=== PATIENT | male | born 1975 | race Caucasian/White ===

== ENCOUNTER 2024-03-02 19:35 | Emergency (ER) | payer BC, SELFPAY ==
[2024-03-02 19:36] VITALS: BP 158/120
[2024-03-02 19:55] LABS: % Basophils 0.5 % (0-2); % Eosinophils 1.4 % (0-6); % Immature Granulocytes 0.4 % (0-0.5); % Lymphocytes 41.6 % (20.5-51.1); % Neutrophils 48.1 % (42.2-75.2); Absolute Basophils 0.1 10^3/uL (0-0.2); Absolute Eosinophils 0.2 10^3/uL (0-0.7); Absolute Lymphocytes 4.6 10^3/uL (1.2-3.4); Absolute Monocytes 0.9 10^3/uL (0.1-0.6); Absolute Neutrophils 5.3 10^3/uL (1.4-6.5); Hematocrit 43.2 % (39.0-52.0); Hemoglobin 15.6 g/dL (13.0-18.0); Mean Corp Hgb Conc. 36.1 g/dL (33.0-37.0); Mean Corpuscular Hgb 29.7 pg (27.0-31.0); Mean Corpuscular Volume 82.3 fL (80.0-94.0); Mean Platelet Volume 9.3 fL (7.4-10.4); Nucleated Red Blood Cells % 0 % (-); Platelet Count 386 10^3/uL (130-400); Red Blood Cell Count 5.25 10^6/uL (4.70-6.10); Red Cell Dist. Width 12.8 % (11.5-14.5); White Blood Cell Count 11.1 10^3/uL (4.8-10.8)
[2024-03-02 20:06] VITALS: BMI 27.5
[2024-03-02 20:08] LABS: ALT (SGPT) 28 U/L (0-50); AST (SGOT) 37 U/L (17-59); Albumin 5.3 g/dl (3.5-5.0); Alkaline Phosphatase 83 U/L (38-126); Blood Urea Nitrogen 9 mg/dl (9-20); Calcium 9.8 mg/dl (8.4-10.2); Carbon Dioxide 19 mmol/L (22-30); Chloride 109 mmol/L (98-107); Estimated Creatinine Clearance 118 ml/min; Glucose 100 mg/dl (70-99); Potassium 3.8 mmol/L (3.5-5.1); Sodium 142 mmol/L (135-145); Total Bilirubin 0.6 mg/dl (0.2-1.3); Total Protein 8.8 g/dl (6.3-8.2); eGFR > 60.00
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
[2024-03-02 20:16] VITALS: BP 149/103
[2024-03-02 21:00] VITALS: BP 153/103
[2024-03-02 22:00] VITALS: BP 157/107
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
[2024-03-02 22:40] VITALS: BP 157/103
== END 2024-03-02 22:54 | disposition home or self-care (01) ==
LOC: EMR 19:35
PROVIDERS: Emergency Medicine; EMERGENCY PHYSICIAN Emergency Medicine; FAMILY PHYSICIAN Internal Medicine
DX: F45.8 Other somatoform disorders (principal); F17.200 Nicotine dependence, unspecified, uncomplicated; R03.0 Elevated blood-pressure reading, without diagnosis of hypertension
CPT/HCPCS: 99284; 80053; 85025; 93005

== ENCOUNTER 2024-03-03 10:41 | Emergency (ER) | payer BC, SELFPAY ==
[2024-03-03] VITALS (7 sets, daily range): BP systolic 162–206; BP diastolic 82–189; BMI 27.0
--- NOTE | 2024-03-03 11:35 | ED.GENMED ---
History of Present Illness
<SUSAN Ruiz - Last Filed: 03/07/24 00:13>
General
Chief Complaint: Musculo-Skeletal Complaint
Source: patient
Exam Limitations: none
Time Seen by Provider: 03/03/24 10:54
Nursing documentation reviewed up to this point in time: agreed with
Travel History
Have you had any contact with someone who has COVID-19?: No
Do you have any symptoms of coronavirus? Fever > 100 degrees, chills, cough, shortness of breath, sore throat, loss of taste or smell, muscle aches, or headache?: No
History of Present Illness
History of Present Illness:
Patient is a 48-year-old male who presents back to the ER with same complaints as yesterday. Patient was seen and evaluated here in the ER last evening. Patient reports last evening around 7 PM he was cutting grass that had an argument with his
and then shortly after he had tingling of both arms and his fingers and hands went to a spasm he felt very dry mouth. He presented here to the ER was monitored diagnosed with hyperventilation anxiety and discharged home. He reports he slept
at a friend's house and this morning was talking to his mom about a very stressful topic and again developed the same symptoms. Today he is arms tingling his hands went to spasm and he fell like he was wearing a neck tie and describes this as his
throat closing up sensation. He currently feels better. He has a history of alcohol abuse has been sober for the past 3 months he has been on Zoloft for years and he smokes about a pack of cigarettes per week. He is adopted but reports no cardiac
history that he is aware of.
He himself has no history of cardiac disease.
Past History
<SUSAN Ruiz - Last Filed: 03/07/24 00:13>
Past History
ED Past Medical History: GERD
ED Past Surgical History: Cholecystectomy
Patient has exhibited threatening behavior?: No
PSI?: No
Social History
Tobacco: Smoker
Alcohol: Daily (Beer 2-3)
Personal:
Living: with family
Employment: Employed
Family History
Family History: Adopted
Review of Systems
<SUSAN Ruiz - Last Filed: 03/07/24 00:13>
Review of Systems
Allergies reviewed?: Yes
All Other Systems: ROS reviewed and negative except as documented in HPI and ROS
Constitutional: Reports no symptoms; Denies fever, fatigue or chills
EENT: Reports no symptoms
Respiratory: Reports trouble breathing ( ' I felt like I was wearing a neck tie' )
Cardiac: Reports no symptoms; Denies chest pain
ABD/GI: Reports no symptoms; Denies nausea or vomiting
: Reports no symptoms
Musculoskeletal: Reports no symptoms
Skin: Reports no symptoms
Psychiatric: Reports anxiety
Phy Exam
<SUSAN Ruiz - Last Filed: 03/07/24 00:13>
General Physical Exam
General Presentation: no apparent distress
General age: appears stated age
General Skin: warm and dry
General Habitus: normal
General Mental: alert
General Hydration: appears well hydrated
Cardiovascular Exam
Cardiovascular Exam: regular rate/rhythm, no murmur and normal peripheral pulses
Pulmonary Exam
Pulmonary Exam: lungs clear and no respiratory distress
Neurological Exam
Neurological Exam: alert and oriented x3
Musculoskeletal Exam
Musculoskeletal Exam: full ROM
Skin Exam
Skin Exam: normal color and warm/dry
Psychiatric Exam
Psychiatric Exam: anxious
Course
<SUSAN Ruiz - Last Filed: 03/07/24 00:13>
Orders/Labs/Results
Orders:
Orders
03/03/24 11:38
Chest [CR Chest - 2 Views ] Urgent
Comment:
Reason For Exam: cp
03/03/24 11:47
Troponin I Urgent
03/03/24 12:34
CT Chest/abd Angio W/wo Iv Con Urgent
Comment:
Reason For Exam: chest pain
03/03/24 12:37
IV Insert/Care/Rem.- Treatment PRN
03/03/24 12:52
Complete Blood Count/With Diff Urgent
Comprehensive Metabolic Panel Urgent
03/03/24 15:36
Losartan [Cozaar] 50 mg PO NOW STA
Abnormal Lab Results
03/03/24
12:52
WBC 14.2 H 10^3/uL
(4.8-10.8)
Abs Immat Gran (auto) 0.1 H 10^3/uL
(0-0.05)
Absolute Neuts (auto) 10.3 H 10^3/uL
(1.4-6.5)
Absolute Monos (auto) 1.5 H 10^3/uL
(0.1-0.6)
Lymphocytes % 15.7 L %
(20.5-51.1)
Monocytes % 10.3 H %
(1.7-9.3)
Carbon Dioxide 21 L mmol/L
(22-30)
Total Protein 8.6 H g/dl
(6.3-8.2)
Albumin 5.1 H g/dl
(3.5-5.0)
03/03/24 12:52
03/03/24 12:52
Vital Signs
Initial and Last Documented VS:
Initial Vital Signs
Temp Pulse Resp BP Pulse Ox
98.2 F 106 20 164/82 98
03/03/24 10:49 03/03/24 10:49 03/03/24 10:49 03/03/24 10:49 03/03/24 10:49
Last Documented Vital Signs
Temp Pulse Resp BP Pulse Ox
98.2 F 86 13 160/108 97
03/03/24 10:49 03/03/24 15:30 03/03/24 15:30 03/03/24 15:49 03/03/24 15:30
<Nelson Bland, DO - Last Filed: 03/03/24 16:05>
Orders/Labs/Results
Orders:
Orders
03/03/24 11:38
Chest [CR Chest - 2 Views ] Urgent
Comment:
Reason For Exam: cp
03/03/24 11:47
Troponin I Urgent
03/03/24 12:34
CT Chest/abd Angio W/wo Iv Con Urgent
Comment:
Reason For Exam: chest pain
03/03/24 12:37
IV Insert/Care/Rem.- Treatment PRN
03/03/24 12:52
Complete Blood Count/With Diff Urgent
Comprehensive Metabolic Panel Urgent
03/03/24 15:36
Losartan [Cozaar] 50 mg PO NOW STA
Abnormal Lab Results
03/03/24
12:52
WBC 14.2 H 10^3/uL
(4.8-10.8)
Abs Immat Gran (auto) 0.1 H 10^3/uL
(0-0.05)
Absolute Neuts (auto) 10.3 H 10^3/uL
(1.4-6.5)
Absolute Monos (auto) 1.5 H 10^3/uL
(0.1-0.6)
Lymphocytes % 15.7 L %
(20.5-51.1)
Monocytes % 10.3 H %
(1.7-9.3)
Carbon Dioxide 21 L mmol/L
(22-30)
Total Protein 8.6 H g/dl
(6.3-8.2)
Albumin 5.1 H g/dl
(3.5-5.0)
03/03/24 12:52
03/03/24 12:52
Vital Signs
Initial and Last Documented VS:
Initial Vital Signs
Temp Pulse Resp BP Pulse Ox
98.2 F 106 20 164/82 98
03/03/24 10:49 03/03/24 10:49 03/03/24 10:49 03/03/24 10:49 03/03/24 10:49
Last Documented Vital Signs
Temp Pulse Resp BP Pulse Ox
98.2 F 86 13 160/108 97
03/03/24 10:49 03/03/24 15:30 03/03/24 15:30 03/03/24 15:49 03/03/24 15:30
<SUSAN Ruiz - Last Filed: 03/07/24 00:13>
MDM/Problems Addressed
Differential Diagnosis Includes:
not limited to: anxiety, htn less likely ACS
MDM/Problems Addressed:
As documented patient was seen here yesterday after having with his diagnosed with hyperventilation syndrome. Patient back today with similar episode. He was speaking with his mom about a 'very heated subject,' and shortly after had
bilateral arm tingling and spasms of hands. Patient also describes feeling that he had a neck tile and felt tightness in this area. Patient presented awake alert no acute distress on my exam patient appears calmer but does admit that he is
anxious over what has been occurring since yesterday after having an argument with his . Patient did not have a cardiac troponin yesterday though he had no chest pain with complaints of neck tightness today troponin ordered and negative.
Patient had a normal EKG yesterday was mildly tacky yesterday. Chest x-ray today however shows increased prominence of the region of the ascending aorta CAT scan. d/c w/ ED physician will d/c with pt and order ct .
1531: CT incidentally shows 4.2 cm aortic aneurysm. Blood pressure is high he does not have a history of hypertension blood pressure now 160/100 heart rate 80s .
Case reviewed with cardiovascular surgery on-call Dr. Abraham Valencia who does recommend following up with PCP and having a repeat CTA chest in 6 months. Will start him on blood pressure medicine he does agree. Case reviewed with ED physician will
start losartan will give first dose here. Patient no acute distress discussed close outpatient follow-up.
<SUSAN Ruiz - Last Filed: 03/07/24 00:13>
*Critical Care Note
Total Time (30-74mins, 75-104mins- exclusive of procedures): Not Applicable
ED Attending Note
<SUSAN Ruiz - Last Filed: 03/07/24 00:13>
-
Portions of this chart may have been created with voice recognition software.� Occasional wrong word or��sound alike� substitutions may have occurred due to the inherent limitations of voice recognition software.
<Nelson Bland DO - Last Filed: 03/03/24 16:05>
ED Attending Note
Patient seen and examined by attending physician: Yes
ED Attending Note:
I have reviewed and agree with history and plan medical Savi. Patient is no acute distress, and ambulates without difficulty. He will follow-up with CT surgery for incidentally found ascending aortic aneurysm.
Discharge Plan
Departure
Patient Disposition: Home (Routine Discharge)
Date of Disposition: 03/03/24
Time of Disposition: 15:39
Patient with high blood pressure during this ER visit?: Yes
Condition: Fair
Covid-19: Not Applicable
Discharge Problem:
Anxiety, elevated blood pressue, Aneurysm of ascending aorta
Instructions: Anxiety, Adult (DC), BLOOD PRESSURE
Prescriptions:
New
losartan 50 mg tablet
50 mg PO DAILY Qty: 30 0RF
No Action
omeprazole magnesium [Prilosec OTC] 20 MG tablet,delayed release (DR/EC)
20 mg PO DAILY
ibuprofen 200 mg Tablet
200 mg PO DAILY
sertraline [Zoloft] 50 mg Tablet
50 mg PO DAILY
Thc Edible
1 gummy PO HSPRN PRN (Reason: sleep)
Referrals:
Axel Arvizu MD [Family Provider] -
Abraham Valencia MD [Active] -
Stand Alone Forms: Return to Work
Activity Restrictions/Additional Instructions:
You were seen here today for symptoms consistent with anxiety however incidentally there is an aneurysm seen in your ascending aorta( 4.2 cm). Your blood pressure was also high which will need to be treated. You were given 1 dose here in the ER of
losartan (a blood pressure medication). Please take this as directed daily. this medication was sent to your pharmacy. Closely follow-up with your family doctor/CT surgery for reevaluation of aneurysm finding you will need repeat imaging (CTA of
the chest) in the next 6-month. Avoid lifting
Return if any worsening of symptoms.
Interventions
Interventions:
*Risk Screen - Suicide Last Done: 03/03/24 10:49
*Neglect/Abuse Screening Last Done: 03/03/24 10:52
ED- Fall Risk Assessment Last Done: 03/03/24 16:06
*Nursing Disposition Last Done: 03/03/24 16:06
ED-Musculoskeletal Assessment Last Done: 03/03/24 11:52
Discharge Date and Time
Discharge Date/Time: 03/03/24 16:06
Print Language: UKRAIN[place]
[2024-03-03 12:21] LABS: Troponin I < 0.012 ng/ml
[2024-03-03 13:01] LABS: % Basophils 0.4 % (0-2); % Eosinophils 0.4 % (0-6); % Immature Granulocytes 0.4 % (0-0.5); % Lymphocytes 15.7 % (20.5-51.1); % Monocytes 10.3 % (1.7-9.3); % Neutrophils 72.8 % (42.2-75.2); Absolute Basophils 0.1 10^3/uL (0-0.2); Absolute Eosinophils 0.1 10^3/uL (0-0.7); Absolute Immature Granulocytes 0.1 10^3/uL (0-0.05); Absolute Lymphocytes 2.2 10^3/uL (1.2-3.4); Absolute Monocytes 1.5 10^3/uL (0.1-0.6); Absolute Neutrophils 10.3 10^3/uL (1.4-6.5); Hematocrit 44.9 % (39.0-52.0); Hemoglobin 15.7 g/dL (13.0-18.0); Mean Corpuscular Hgb 29.9 pg (27.0-31.0); Mean Corpuscular Volume 85.5 fL (80.0-94.0); Mean Platelet Volume 9.3 fL (7.4-10.4); Nucleated Red Blood Cells % 0 % (-); Platelet Count 320 10^3/uL (130-400); Red Blood Cell Count 5.25 10^6/uL (4.70-6.10); Red Cell Dist. Width 12.6 % (11.5-14.5); White Blood Cell Count 14.2 10^3/uL (4.8-10.8)
[2024-03-03 13:20] LABS: ALT (SGPT) 26 U/L (0-50); AST (SGOT) 39 U/L (17-59); Albumin 5.1 g/dl (3.5-5.0); Alkaline Phosphatase 82 U/L (38-126); Blood Urea Nitrogen 15 mg/dl (9-20); Calcium 10.1 mg/dl (8.4-10.2); Carbon Dioxide 21 mmol/L (22-30); Chloride 107 mmol/L (98-107); Estimated Creatinine Clearance > 125 ml/min; Glucose 90 mg/dl (70-99); Sodium 139 mmol/L (135-145); Total Bilirubin 1.3 mg/dl (0.2-1.3); Total Protein 8.6 g/dl (6.3-8.2); eGFR > 60.00
[2024-03-03] MEDS: COZAAR 50 MG PO (15:49)
== END 2024-03-03 16:06 | disposition home or self-care (01) ==
LOC: EMR 10:41
PROVIDERS: Nurse Practitioner; EMERGENCY PHYSICIAN Emergency Medicine; FAMILY PHYSICIAN Internal Medicine
DX: F41.9 Anxiety disorder, unspecified (principal); I71.21 Aneurysm of the ascending aorta, without rupture; R03.0 Elevated blood-pressure reading, without diagnosis of hypertension
CPT/HCPCS: 99285; 71046; 71275; 74175; 80053; 84484; 85025; Q9967

== ENCOUNTER 2024-07-12 20:48 | Emergency (ER) | payer BC, SELFPAY ==
[2024-07-12 20:51] VITALS: BP 123/82
[2024-07-12 21:38] LABS: % Basophils 0.6 % (0-2); % Immature Granulocytes 0.2 % (0-0.5); % Lymphocytes 27.8 % (20.5-51.1); % Monocytes 8.5 % (1.7-9.3); % Neutrophils 60.9 % (42.2-75.2); Absolute Basophils 0.1 10^3/uL (0-0.2); Absolute Eosinophils 0.2 10^3/uL (0-0.7); Absolute Lymphocytes 2.8 10^3/uL (1.2-3.4); Absolute Monocytes 0.9 10^3/uL (0.1-0.6); Absolute Neutrophils 6.1 10^3/uL (1.4-6.5); Hematocrit 43.3 % (39.0-52.0); Hemoglobin 15.5 g/dL (13.0-18.0); Mean Corp Hgb Conc. 35.8 g/dL (33.0-37.0); Mean Corpuscular Hgb 30.4 pg (27.0-31.0); Mean Corpuscular Volume 84.9 fL (80.0-94.0); Mean Platelet Volume 9.7 fL (7.4-10.4); Nucleated Red Blood Cells % 0 % (-); Platelet Count 287 10^3/uL (130-400); Red Cell Dist. Width 13.2 % (11.5-14.5)
[2024-07-12 21:40] VITALS: BMI 24.4
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
[2024-07-12 21:50] LABS: Amphetamines Negative (Negative); Barbiturates Negative (Negative); Benzodiazepines Negative (Negative); Buprenorphine Negative (Negative); Cocaine Negative (Negative); Marijuana Negative (Negative); Methadone Negative (Negative); Methamphetamines Negative (Negative); Opiates Negative (Negative); Phencyclidine Negative (Negative); Tricyclic Antidepressants Negative (Negative)
[2024-07-12 21:54] LABS: COVID-19 Antigen Negative (Negative)
[2024-07-12] MEDS: MULTIVITAMIN 1011 ML IV (22:02)
[2024-07-12] MEDS: MULTIVITAMIN 1011 MG IV (22:02)
[2024-07-12] MEDS: ADACEL 0.5 ML IM (22:02)
[2024-07-12 22:05] LABS: Acetaminophen < 10 ug/ml (10-30); Blood Urea Nitrogen 9 mg/dl (9-20); Calcium 9.2 mg/dl (8.4-10.2); Carbon Dioxide 21 mmol/L (22-30); Chloride 110 mmol/L (98-107); Estimated Creatinine Clearance > 125 ml/min; Glucose 92 mg/dl (70-99); Salicylate < 1.0 mg/dl (2.0-20.0); Sodium 150 mmol/L (135-145); eGFR > 60.00
[2024-07-12 22:14] LABS: Alcohol 306 mg/dl
[2024-07-12 23:32] VITALS: BP 114/67
== END 2024-07-13 02:40 | disposition home or self-care (01) ==
LOC: EMR 20:48
PROVIDERS: EMERGENCY PHYSICIAN Emergency Medicine
DX: F10.129 Alcohol abuse with intoxication, unspecified (principal); S60.416A Abrasion of right little finger, initial encounter; W22.8XXA Striking against or struck by other objects, initial encounter; Y90.8 Blood alcohol level of 240 mg/100 ml or more; Z23 Encounter for immunization; F32.A Depression, unspecified; K21.9 Gastro-esophageal reflux disease without esophagitis; F17.200 Nicotine dependence, unspecified, uncomplicated
CPT/HCPCS: 99283; 90471; 80048; 80143; 80179; 80306; 82077; 85025; 87811; 90715

== ENCOUNTER 2024-08-14 18:21 | Emergency (ER) | payer MEDICAID, SELFPAY ==
[2024-08-14 18:27] VITALS: BMI 25.8
[2024-08-14 19:28] VITALS: BP 127/64
[2024-08-14 20:32] LABS: % Basophils 0.4 % (0-2); % Immature Granulocytes 0.3 % (0-0.5); % Lymphocytes 27.5 % (20.5-51.1); % Monocytes 6.1 % (1.7-9.3); % Neutrophils 64.7 % (42.2-75.2); Absolute Eosinophils 0.1 10^3/uL (0-0.7); Absolute Lymphocytes 2.5 10^3/uL (1.2-3.4); Absolute Monocytes 0.6 10^3/uL (0.1-0.6); Absolute Neutrophils 5.9 10^3/uL (1.4-6.5); Hematocrit 44.8 % (39.0-52.0); Hemoglobin 16.1 g/dL (13.0-18.0); Mean Corp Hgb Conc. 35.9 g/dL (33.0-37.0); Mean Corpuscular Hgb 30.5 pg (27.0-31.0); Mean Corpuscular Volume 84.8 fL (80.0-94.0); Mean Platelet Volume 8.8 fL (7.4-10.4); Nucleated Red Blood Cells % 0 % (-); Platelet Count 306 10^3/uL (130-400); Red Blood Cell Count 5.28 10^6/uL (4.70-6.10); Red Cell Dist. Width 14.1 % (11.5-14.5); White Blood Cell Count 9.1 10^3/uL (4.8-10.8)
[2024-08-14 20:50] LABS: Chloride 101 mmol/L (98-107); Potassium 3.7 mmol/L (3.5-5.1); Sodium 147 mmol/L (135-145)
[2024-08-14 20:53] LABS: ALT (SGPT) 28 U/L (0-50); AST (SGOT) 45 U/L (17-59); Acetaminophen < 10 ug/ml (10-30); Alkaline Phosphatase 95 U/L (38-126); Blood Urea Nitrogen 14 mg/dl (9-20); Calcium 9.4 mg/dl (8.4-10.2); Carbon Dioxide 28 mmol/L (22-30); Estimated Creatinine Clearance 86 ml/min; Glucose 96 mg/dl (70-99); Salicylate < 1.0 mg/dl (2.0-20.0); Total Bilirubin 0.5 mg/dl (0.2-1.3); Total Protein 8.1 g/dl (6.3-8.2); eGFR > 60.00
[2024-08-14 21:04] LABS: Alcohol 376 mg/dl
[2024-08-14] MEDS: ATIVAN 1 MG IV ×2 (21:29→23:51)
[2024-08-14 21:35] VITALS: BP 108/71
[2024-08-14 23:37] VITALS: BP 108/73
--- NOTE | 2024-08-14 23:38 | ED.GENMED ---
History of Present Illness
General
Chief Complaint: Suicidal Ideation
Source: patient, records and other (Crisis)
Exam Limitations: none
Time Seen by Provider: 08/14/24 18:39
Nursing documentation reviewed up to this point in time: agreed with
History of Present Illness
History of Present Illness:
Patient is a 48-year-old male who reportedly was drinking alcohol today and ended up speaking with mobile crisis saying he was going to hurt himself and others. Patient was brought to the emergency department. Patient has been through stress as
his relationship has become fractured. Patient denies any recent illnesses or injuries. Patient has a history of depression and is on medication. At this time denies wanting to harm himself or anyone else. Patient does not have access to
firearms. Patient does have a history of a thoracic aortic aneurysm that is monitored every 6 months.
Past History
Past History
ED Past Medical History: GERD, Psychiatric and Other (Thoracic aneurysm)
ED Past Surgical History: Cholecystectomy
Patient has exhibited threatening behavior?: No
PSI?: No
Social History
Tobacco: Smoker
Alcohol: Daily (Beer 2-3)
Personal:
Living: with family
Employment: Employed
Family History
Family History: Adopted
Review of Systems
Review of Systems
All Other Systems: Not applicable
Phy Exam
Physical Exam
Physical Exam:
Physical Exam
General: No apparent distress, alert and intoxicated but cooperative, well nourished, well hydrated
HENT: Normocephalic, supple
Eyes: Clear sclera, conjuctiva without injection
Lungs: No respiratory distress, no stridor
Neuro: Alert and oriented x 3, CN II - XII intact, no motor focality, no cerebellar dysfunction
Skin: no rash
Psychiatric: intoxicated. interactive and cooperative
Extremities: No edema, cyanosis, tenderness
Course
Orders/Labs/Results
Orders:
Orders
08/14/24 18:35
1:1 Observation - Suicide/ Violent Behavior As Directed
08/14/24 20:18
Crisis Consult Urgent
Reason for Consult: si/hi
IV Insert/Care/Rem.- Treatment PRN
08/14/24 20:22
Acetaminophen Urgent
Alcohol Urgent
Complete Blood Count/With Diff Urgent
Comprehensive Metabolic Panel Urgent
Salicylate Urgent
08/14/24 20:59
Lorazepam [Ativan] 1 mg IV NOW STA
08/14/24 23:37
Lorazepam [Ativan] 1 mg IV NOW STA
Abnormal Lab Results
08/14/24
20:22
Sodium 147 H mmol/L
(135-145)
Salicylates < 1.0 L mg/dl
(2.0-20.0)
Acetaminophen < 10 L ug/ml
(10-30)
08/14/24 20:22
08/14/24 20:22
Vital Signs
Initial and Last Documented VS:
Initial Vital Signs
Pulse Resp BP Pulse Ox
80 20 127/64 97
08/14/24 19:28 08/14/24 19:28 08/14/24 19:28 08/14/24 19:28
Last Documented Vital Signs
Pulse Resp BP Pulse Ox
88 16 108/73 96
08/14/24 23:37 08/14/24 21:35 08/14/24 23:37 08/14/24 23:37
*Radiology
Radiology exam reviewed: other (Not applicable)
*Pulse Oximetry
Patient hypoxic: no
*EKG
Interpreted by ED Provider?: NA
*Viticulturist Interpretation
Rate: Viticulturist- N/A
*Critical Care Note
Total Time (30-74mins, 75-104mins- exclusive of procedures): Not Applicable
Update Note
Update Note:
Patient was brought in as a 302. When patient farrah up and be reassessed. I anticipate the patient not being a 302 and being able to be discharged.
ED Attending Note
-
Portions of this chart may have been created with voice recognition software.� Occasional wrong word or��sound alike� substitutions may have occurred due to the inherent limitations of voice recognition software.
Discharge Plan
Departure
Condition: Good
Covid-19: Not Applicable
Discharge Problem:
Alcohol intoxication
Instructions: Alcohol Intoxication ED, Alcohol Use Disorder (DC)
Prescriptions:
No Action
omeprazole magnesium [Prilosec OTC] 20 MG tablet,delayed release (DR/EC)
20 mg PO DAILY
ibuprofen 200 mg Tablet
200 mg PO DAILY
sertraline [Zoloft] 50 mg Tablet
50 mg PO DAILY
Thc Edible
1 gummy PO HSPRN PRN (Reason: sleep)
losartan 50 mg tablet
50 mg PO DAILY Qty: 30 0RF
Referrals:
UNKNOWN,NO INTERVIEW [Family Provider] -
Interventions
Interventions:
*Risk Screen - Suicide Last Done: 08/14/24 18:27
*General Assessment Last Done: 08/14/24 18:27
*Neglect/Abuse Screening Last Done: 08/14/24 18:27
ED- Fall Risk Assessment Last Done: 08/14/24 18:27
*ED COVID-19 Vaccine History Last Done: 08/14/24 18:27
ED-Psychological Assessment Last Done: 08/14/24 18:27
Discharge Date and Time
Print Language: ALBANIAN
[2024-08-15 04:45] LABS: Alcohol 158 mg/dl
[2024-08-15 05:10] VITALS: BP 121/82
--- NOTE | 2024-08-15 05:19 | ED.GENMED ---
History of Present Illness
General
Chief Complaint: Suicidal Ideation
Time Seen by Provider: 08/14/24 18:39
Past History
Past History
ED Past Medical History: GERD, Psychiatric and Other (Thoracic aneurysm)
ED Past Surgical History: Cholecystectomy
Patient has exhibited threatening behavior?: No
PSI?: No
Social History
Tobacco: Smoker
Alcohol: Daily (Beer 2-3)
Personal:
Living: with family
Employment: Employed
Family History
Family History: Adopted
Course
Orders/Labs/Results
Orders:
Orders
08/14/24 18:35
1:1 Observation - Suicide/ Violent Behavior As Directed
08/14/24 20:18
Crisis Consult Urgent
Reason for Consult: si/hi
IV Insert/Care/Rem.- Treatment PRN
08/14/24 20:22
Acetaminophen Urgent
Alcohol Urgent
Complete Blood Count/With Diff Urgent
Comprehensive Metabolic Panel Urgent
Salicylate Urgent
08/14/24 20:59
Lorazepam [Ativan] 1 mg IV NOW STA
08/14/24 23:37
Lorazepam [Ativan] 1 mg IV NOW STA
08/15/24 04:15
Alcohol Urgent
Abnormal Lab Results
08/14/24
20:22
Sodium 147 H mmol/L
(135-145)
Salicylates < 1.0 L mg/dl
(2.0-20.0)
Acetaminophen < 10 L ug/ml
(10-30)
08/14/24 20:22
08/14/24 20:22
Vital Signs
Initial and Last Documented VS:
Initial Vital Signs
Pulse Resp BP Pulse Ox
80 20 127/64 97
08/14/24 19:28 08/14/24 19:28 08/14/24 19:28 08/14/24 19:28
Last Documented Vital Signs
Pulse Resp BP Pulse Ox
88 16 108/73 96
08/14/24 23:37 08/14/24 21:35 08/14/24 23:37 08/14/24 23:37
Update Note
Update Note:
Patient was signed out pending sobriety. Patient is clinically sober. The 302 was called in by crisis but it was declined. Patient has charges and police at bedside to take him into custody.
ED Attending Note
-
Portions of this chart may have been created with voice recognition software.� Occasional wrong word or��sound alike� substitutions may have occurred due to the inherent limitations of voice recognition software.
Discharge Plan
Departure
Patient Disposition: Retirement
Date of Disposition: 08/15/24
Time of Disposition: 05:20
Condition: Good
Covid-19: Not Applicable
Discharge Problem:
Alcohol intoxication
Instructions: Alcohol Use Disorder (DC), Alcohol Intoxication ED
Prescriptions:
No Action
omeprazole magnesium [Prilosec OTC] 20 MG tablet,delayed release (DR/EC)
20 mg PO DAILY
ibuprofen 200 mg Tablet
200 mg PO DAILY
sertraline [Zoloft] 50 mg Tablet
50 mg PO DAILY
Thc Edible
1 gummy PO HSPRN PRN (Reason: sleep)
losartan 50 mg tablet
50 mg PO DAILY Qty: 30 0RF
Referrals:
UNKNOWN,NO INTERVIEW [Family Provider] -
Activity Restrictions/Additional Instructions:
Naseem Navarro is medically cleared for incarceration
Interventions
Interventions:
*Risk Screen - Suicide Last Done: 08/14/24 18:27
*General Assessment Last Done: 08/14/24 18:27
*Neglect/Abuse Screening Last Done: 08/14/24 18:27
ED- Fall Risk Assessment Last Done: 08/14/24 18:27
*ED COVID-19 Vaccine History Last Done: 08/14/24 18:27
ED-Psychological Assessment Last Done: 08/14/24 18:27
Discharge Date and Time
Print Language: KAZAKH
[2024-08-15 05:30] VITALS: BP 121/82
== END 2024-08-15 05:30 ==
LOC: EMR 18:21
PROVIDERS: Student in an Organized Health Care Education/Training Program; EMERGENCY PHYSICIAN Emergency Medicine
DX: F10.129 Alcohol abuse with intoxication, unspecified (principal); F17.200 Nicotine dependence, unspecified, uncomplicated
CPT/HCPCS: 99284; 96374; 96376; 80053; 80143; 80179; 82077; 85025

== ENCOUNTER 2024-12-17 11:12 | Emergency (ER) | payer MEDICAID, SELFPAY ==
[2024-12-17 11:21] VITALS: BP 165/100
--- NOTE | 2024-12-17 11:47 | ED.GENMED ---
History of Present Illness
General
Chief Complaint: Jaw Pain
Source: patient
Exam Limitations: none
Time Seen by Provider: 12/17/24 11:47
Nursing documentation reviewed up to this point in time: agreed with
History of Present Illness
History of Present Illness:
49-year-old male with past medical history of tobacco use, abdominal aortic aneurysm, who presents emergency department today with concerns of right jaw pain and swelling. Patient states that this started yesterday as a generalized lower molar
toothache. Patient states that he has had cavities in the past and had to get crowns placed but states that he currently does not follow with a dentist as he is in between insurance and is switching it. He states that he woke up this morning and
noticed that the dental pain got wors and he had right sided jaw swelling. He called an urgent care who recommended that he go to the emergency department. He denies any trouble swallowing any shortness of breath any wheezing. He denies any
changes to his voice any jaw pain with eating. He denies any fevers or chills nausea or vomiting. He denies any abdominal pain.
Past History
Past History
ED Past Medical History: GERD
ED Past Surgical History: Cholecystectomy
Patient has exhibited threatening behavior?: No
PSI?: No
Social History
Tobacco: Smoker
Alcohol: Daily (Beer 2-3)
Personal:
Living: with family
Employment: Employed
Family History
Family History: Adopted
Review of Systems
Review of Systems
All Other Systems: ROS reviewed and negative except as documented in HPI and ROS
Phy Exam
Physical Exam
Physical Exam:
General: Patient is well appearing and in no acute distress; non-toxic
Skin: Warm and dry, no rashes or lesions
Head: Normocephalic, atraumatic. TMJ joints intact bilaterally.
Eyes: Sclera non-icteric. EOMs intact.
Mouth: Scattered dental caries throughout. Uvula midline. No swelling of the floor of the mouth. Tenderness noted over the second right lower molar with no sign of abscess.
Neck: No anterior neck pain or tenderness palpation, no cervical lymphadenopathy
Cardiac: Regular rate and rhythm no murmurs
Peripheral Vascular: No lower extremity swelling or edema
Pulm: Normal respiratory effort, no wheezes, rales, rhonchi
Neuro: CN II-XII intact, no focal neurologic deficits.
Psychiatric: Appropriate mood and affect.
Course
Orders/Labs/Results
Orders:
Orders
12/17/24 12:09
CT Neck With Iv Contrast Urgent
Comment:
Reason For Exam: right submandibular swelling
Ketorolac [Toradol] 15 mg IV NOW STA
12/17/24 12:24
Complete Blood Count/With Diff Urgent
Comprehensive Metabolic Panel Urgent
12/17/24 15:28
Acetaminophen [Tylenol] 650 mg PO NOW STA
12/17/24 15:29
Clindamycin HCl [Cleocin] 450 mg PO NOW STA
12/17/24 15:34
Amoxicillin 875 mg/Clav 125 mg [Augmentin 875 mg/125 mg] 1 tablet PO NOW STA
Abnormal Lab Results
12/17/24
12:24
RBC 4.52 L 10^6/uL
(4.70-6.10)
Absolute Monos (auto) 1.4 H 10^3/uL
(0.1-0.6)
Lymphocytes % 18.3 L %
(20.5-51.1)
Monocytes % 13.6 H %
(1.7-9.3)
Creatinine 0.6 L mg/dL
(0.7-1.3)
12/17/24 12:24
12/17/24 12:24
Vital Signs
Initial and Last Documented VS:
Initial Vital Signs
Temp Pulse Resp BP Pulse Ox
98.0 F 88 20 165/100 100
12/17/24 11:21 12/17/24 11:21 12/17/24 11:21 12/17/24 11:21 12/17/24 11:21
Last Documented Vital Signs
Temp Pulse Resp BP Pulse Ox
98.0 F 88 20 165/100 100
12/17/24 11:21 12/17/24 11:21 12/17/24 11:21 12/17/24 11:21 12/17/24 11:21
MDM/Problems Addressed
Differential Diagnosis Includes:
Differentials include dental infection, dental abscess, facial cellulitis, Urban's angina, deep space neck infection
MDM/Problems Addressed:
49-year-old male presents emergency department with right lower tooth pain and swelling over his right jaw. Patient's airway is intact. He is afebrile he has had no nausea or vomiting no trouble swallowing. He has no trismus. His voice is
normal. Went for CAT scan which revealed cellulitis involving the soft tissues anterior to the mandible mainly anterior to the right mandibular body with no evidence of focal abscess collection within the tissues. Also showed possible caries
within the right mandibular second premolar with subtle lucency adjacent to the root of the second premolar. Suspect dental infection. Will start patient on Augmentin. Reviewed case and CT findings with ENT and OMFS. OMFS will see patient in the
office tomorrow morning for appointment at 8:30 AM. Patient states that he will follow-up with them. No indication for admission at this time. Patient stable for discharge.
Chronic conditions affecting care:
N/A
*Pulse Oximetry
Patient hypoxic: no
*Critical Care Note
Total Time (30-74mins, 75-104mins- exclusive of procedures): Not Applicable
Data Reviewed
Review of Other/Old Records Reveals: Records (Reviewed ER physician documentation from 08/15/2024 patient seen for alcohol intoxication and thoughts of hurting himself) and Discharge Summary (No hospital discharge summaries in [facility] to review)
Patient Management
Escalation/DeEscalation of care consider admission/obs:
Patient stable for discharge, case reviewed with attending
ED Attending Note
-
Portions of this chart may have been created with voice recognition software.� Occasional wrong word or��sound alike� substitutions may have occurred due to the inherent limitations of voice recognition software.
Discharge Plan
Departure
Patient Disposition: Home (Routine Discharge)
Date of Disposition: 12/17/24
Time of Disposition: 15:41
Patient with high blood pressure during this ER visit?: Yes
Condition: Good
Discharge Problem:
Dental infection, Cellulitis
Instructions: Cellulitis (skin infection) in adults - Discharge instructions, Dental pain - ED discharge instructions
Prescriptions:
New
amoxicillin-pot clavulanate 875-125 mg tablet
1 tab PO BID 10 Days Qty: 20 0RF
No Action
omeprazole magnesium [Prilosec OTC] 20 MG tablet,delayed release (DR/EC)
20 mg PO DAILY
ibuprofen 200 mg Tablet
200 mg PO DAILY
sertraline [Zoloft] 50 mg Tablet
50 mg PO DAILY
Thc Edible
1 gummy PO HSPRN PRN (Reason: sleep)
losartan 50 mg tablet
50 mg PO DAILY Qty: 30 0RF
Referrals:
Diana Castillo DDS [Active] - Call in 1-3 days for appt
NONE,* [Family Provider] -
Activity Restrictions/Additional Instructions:
Please report to [place] [address] at 8:30 am for your appointment with Dr. Castillo (oral surgeon). Please start Augmentin, you can take one tablet twice daily for 10 days.
Please return to emergency department should you develop inability to swallow, trouble breathing, chest pain, shortness of breath, persistent drooling or hoarseness to her voice, trouble speaking or moving her jaw, fevers and chills, or any other
signs or symptoms worrisome deep
Please visit to fill out patient registration paperwork
[email or web address]
Interventions
Interventions:
*Risk Screen - Suicide Last Done: 12/17/24 11:21
*General Assessment Last Done: 12/17/24 11:21
*Neglect/Abuse Screening Last Done: 12/17/24 11:21
*Nursing Disposition Last Done: 12/17/24 16:00
ED-EENT Assessment Last Done: 12/17/24 12:20
ED- Cardiac Assessment Last Done: 12/17/24 12:20
Discharge Date and Time
Discharge Date/Time: 12/17/24 16:01
Print Language: ITALIAN
[2024-12-17] MEDS: TORADOL 15 MG IV (12:24)
[2024-12-17 12:37] LABS: % Basophils 0.3 % (0-2); % Eosinophils 1.8 % (0-6); % Immature Granulocytes 0.4 % (0-0.5); % Lymphocytes 18.3 % (20.5-51.1); % Monocytes 13.6 % (1.7-9.3); % Neutrophils 65.6 % (42.2-75.2); Absolute Eosinophils 0.2 10^3/uL (0-0.7); Absolute Lymphocytes 1.8 10^3/uL (1.2-3.4); Absolute Monocytes 1.4 10^3/uL (0.1-0.6); Absolute Neutrophils 6.5 10^3/uL (1.4-6.5); Hematocrit 40.2 % (39.0-52.0); Hemoglobin 13.6 g/dL (13.0-18.0); Mean Corp Hgb Conc. 33.8 g/dL (33.0-37.0); Mean Corpuscular Hgb 30.1 pg (27.0-31.0); Mean Corpuscular Volume 88.9 fL (80.0-94.0); Mean Platelet Volume 9.3 fL (7.4-10.4); Nucleated Red Blood Cells % 0 % (-); Platelet Count 251 10^3/uL (130-400); Red Blood Cell Count 4.52 10^6/uL (4.70-6.10); Red Cell Dist. Width 13.3 % (11.5-14.5); White Blood Cell Count 9.9 10^3/uL (4.8-10.8)
[2024-12-17 12:53] LABS: ALT (SGPT) 48 U/L (0-50); AST (SGOT) 40 U/L (17-59); Albumin 4.3 g/dl (3.5-5.0); Alkaline Phosphatase 75 U/L (38-126); Blood Urea Nitrogen 14 mg/dl (9-20); Calcium 9.4 mg/dl (8.4-10.2); Carbon Dioxide 27 mmol/L (22-30); Chloride 107 mmol/L (98-107); Glucose 95 mg/dl (70-99); Potassium 4.3 mmol/L (3.5-5.1); Sodium 141 mmol/L (135-145); Total Bilirubin 0.5 mg/dl (0.2-1.3); Total Protein 7.2 g/dl (6.3-8.2); eGFR > 60.00
[2024-12-17] MEDS: AUGMENTIN 875 MG/125 MG 1 TABLET PO (15:48)
[2024-12-17] MEDS: TYLENOL 650 MG PO (15:48)
== END 2024-12-17 16:01 | disposition home or self-care (01) ==
LOC: EMR 11:12
PROVIDERS: Physician Assistant; EMERGENCY PHYSICIAN Student in an Organized Health Care Education/Training Program
DX: K04.7 Periapical abscess without sinus (principal); L03.90 Cellulitis, unspecified; R68.84 Jaw pain; K21.9 Gastro-esophageal reflux disease without esophagitis; F17.200 Nicotine dependence, unspecified, uncomplicated; Z86.79 Personal history of other diseases of the circulatory system; Z90.49 Acquired absence of other specified parts of digestive tract
CPT/HCPCS: 99284; 96374; 70491; 80053; 85025; Q9967

== ENCOUNTER 2024-12-30 20:56 | Inpatient (IN) | payer MEDICAID, SELFPAY ==
[2024-12-30] VITALS (18 sets, daily range): BP systolic 71–116; BP diastolic 47–77; PULSE 84–99; BMI 25.8
--- NOTE | 2024-12-30 16:19 | ED.GENMED ---
ED Provider Triage
<Álvaro Kumar PA-C - Last Filed: 12/30/24 16:20>
-
Patient seen by provider in Triage?: Seen in Triage
Attestation: A medical screening examination has been initiated by a qualified medical provider. Based on the assessment performed at this time, it has been determined that an emergent medical condition may exist and the patient has been informed
that further medical evaluation and possible additional diagnostic testing may be needed.
HPI: 49-year-old male presents the emergency department for evaluation of postural dizziness ongoing for the past several days. Had 1 near syncopal event. Denies chest pain or shortness of breath. Takes losartan 100 mg daily has been on this for
the past 8+ months. BP in triage noted to be 70/40 however patient does not look pale or diaphoretic, does not appear to be near syncopal
GENERAL: Alert , in no apparent distress
EYE: No visual abnormalities.
NECK: Trachea midline
ENT: No visible abnormalities.
LUNGS: No acute respiratory distress
NEUROLOGICAL: Alert and oriented
SKIN: Skin intact. No visible changes.
MUSCULOSKELETAL: Moving extremities normally
PSYCH: Normal and appropriate interaction.
This is a medical evaluation conducted in person to initiate diagnostic evaluation and provide initial therapeutics. Please see further documentation by the treating clinician.
History of Present Illness
<Álvaro Kumar PA-C - Last Filed: 12/30/24 16:20>
General
Chief Complaint: Dizziness
Time Seen by Provider: 12/30/24 17:33
<Roosevelt Larios Jr., PA-C - Last Filed: 12/31/24 07:17>
General
Source: patient
Exam Limitations: none
Nursing documentation reviewed up to this point in time: agreed with
History of Present Illness
History of Present Illness:
49-year-old male past medical history of ascending aortic aneurysm, hypertension, GERD presenting to the emergency department today with concerns of lightheadedness with position changes to some degree over the past 3 days but worsening today. Had
a telehealth visit and was sent to the ER. He denies any specific chest pain abdominal pain, shortness of breath no specific symptoms when denies any significant recent illness did have a dental infection a few weeks ago but has been asymptomatic
in that regard over the last few weeks. He claims that he does have a history of alcohol abuse did relapse 5 days ago only drank for 1 day and has not drank over the past few days.
Past History
<Álvaro Kumar PA-C - Last Filed: 12/30/24 16:20>
Past History
ED Past Medical History: GERD
ED Past Surgical History: Cholecystectomy
Patient has exhibited threatening behavior?: No
PSI?: No
Social History
Tobacco: Smoker
Alcohol: Daily (Beer 2-3)
Personal:
Living: with family
Employment: Employed
Family History
Family History: Adopted
Review of Systems
<Roosevelt Larios Jr., PA-C - Last Filed: 12/31/24 07:17>
Review of Systems
Allergies reviewed?: Yes
All Other Systems: ROS reviewed and negative except as documented in HPI and ROS
Phy Exam
<Roosevelt Larios Jr., PA-C - Last Filed: 12/31/24 07:17>
Physical Exam
Physical Exam:
GENERAL: Alert , in no apparent distress
EYE: pupils equal and reactive
NECK: Supple, no significant adenopathy.
ENT: o/p clr, mmm.
CARDIAC: Regular rate and rhythm .
LUNGS: Clear breath sounds bilaterally, no acute respiratory distress, no wheezes/rales/rhonchi
ABDOMEN: Soft, without focal tenderness, no r/g, no cvat
NEUROLOGICAL: Alert and oriented, no focal neuro deficits
SKIN: Warm and dry, skin intact.
MUSCULOSKELETAL: No edema, well perfused.
PSYCH: Normal and appropriate interaction.
Course
<Álvaro Kumar PA-C - Last Filed: 12/30/24 16:20>
Orders/Labs/Results
Orders:
Orders
12/30/24 Breakfast
Regular
At Your Request: Full Participation
12/30/24 15:54
Electrocardiogram (*1) Urgent
Reason for Study: Vertigo / Dizzy
EKG- Treatment ONCE
12/30/24 16:19
Lactated Ringers [Lr] 1,000 ml IV BOLUS
12/30/24 16:28
Complete Blood Count/With Diff Urgent
Comprehensive Metabolic Panel Urgent
12/30/24 17:49
CT Abd/pel Without Iv Or Oral Urgent
Comment:
Reason For Exam: renal failure, hypotensive
12/30/24 17:50
Bladder Scan- Treatment ONCE
12/30/24 18:30
Urinalysis Reflex To Culture Urgent
Date Specimen was Collected: 12/30/24
Time Specimen was Collected: 17:43
Urine Microscopic Reflex Cult Urgent
Lactated Ringers [Lr] 1,000 ml IV BOLUS
12/30/24 20:25
Admit/Transfer Patient As Directed
Co-Sign Provider:
Level of Care: Inpatient admission
Assign to:: Medical/Surgical
Physician / Group: [facility]
Diagnosis: LAMIN
Reason for Hospitalization: LAMIN
Expected length of stay greater than two midnights?: Yes
ELOS- Estimated Length of Stay in days: 2
I certify the patient meets the requirements for IP care: Yes
12/30/24 20:26
Code Status As Directed
Resuscitation Status: Full Code
PRN Pain Medication Management As Directed
May give lesser potent ordered pain med per pt: Yes
preference::
Protocol:: Medication orders for pain may be administered in a
manner that supports deferring to patient preference
when the pt is:
- Requesting an ordered lesser potent pain medication.
Least to most potent pain medications are defined
as: acetaminophen < NSAID < tramadol < opioids
(morphine, oxycodone, hydromorphone).
- Requesting a lesser dose of the same medication IF
ORDERED.
- Requesting a less intrusive route of administration
if both routes are prescribed by the provider (PO <
IV).
12/30/24 21:45
Acetaminophen [Tylenol] 650 mg PO Q4HPRN PRN
Lactated Ringers [Lr] 1,000 ml IV 150 mls/hr
12/30/24 21:45
Activity As Directed
Activity Level: Ambulate
With Assistance
Bladder Scan As Directed
Follow Bladder Retention/Intermittent Cath Algorithm?: Yes
PRN if no void in __ hours: 6
Frequency: Per Retention Algorithm
If Bladder Scan Result >: 400
then:: Straight cath
I/O [Intake/ Output] As Directed
Frequency: Per unit guidelines
MSAS SCORE As Directed
MSAS Score 0-4: Repeat MSAS every 2 hours until 0-4 for three consecutive assessments, then every 4 hours x 48
hours.
MSAS Score 5-7: For MILD withdrawl symptoms. Repeat MSAS and RASS every 2 hours
MSAS Score 8-11: For MODERATE withdrawal symptoms. Repeat MSAS and RASS every 1 hour. Consider ICU or IMU
level of care.
MSAS Score > 11: For SEVERE withdrawal symptoms. Repeat MSAS and RASS every 1 hour. Notify provider, consider
ICU level of care.
MSAS Additional Instructions: If no improvement or no decrease in score from severe to moderate within 12
hours, consult psychiatry
MSAS Notify Provider: Notify provider if patient requires more than 10 mg of Lorazepam in eight hour period.
Orthostatic Vital Signs As Directed
Orthostatic VS Frequency: BID
Pneumatic Compression Sleeves As Directed
Type: Knee high
Straight Cath As Directed
Frequency: Per Retention Algorithm
Additional Instructions: straight cath as needed per acute urinary retention algorithm for 24 hrs
Additional Instructions: for bladder scan greater than 400 mL
Vital Signs As Directed
Frequency: Per unit guidelines
Oxygen Therapy [O2 Therapy] [RESP] Routine
Titrate/Wean O2 to maintain O2 sat greater than (%): 94
DX Deep Vein Thrombosis Video Routine
12/31/24 06:00
Basic Metabolic Panel IN AM
Complete Blood Count/No Diff IN AM
12/31/24 08:00
Sertraline HCl [Zoloft] 50 mg PO DAILY
Abnormal Lab Results
12/30/24 12/30/24
16:28 18:30
MPV 10.5 H fL
(7.4-10.4)
Absolute Monos (auto) 1.3 H 10^3/uL
(0.1-0.6)
Monocytes % 14.5 H %
(1.7-9.3)
Sodium 133 L mmol/L
(135-145)
Chloride 95 L mmol/L
(98-107)
BUN 85 H mg/dl
(9-20)
Creatinine 2.7 H mg/dL
(0.7-1.3)
Glucose 112 H mg/dl
(70-99)
Urine Bacteria (Reflex) Few A
(Negative)
Urine Albumin (Reflex) 1+ A
(Neg - Trace)
12/30/24 16:28
12/30/24 16:28
Vital Signs
Initial and Last Documented VS:
Initial Vital Signs
Temp Pulse Resp BP Pulse Ox
97.6 F 76 18 80/58 99
12/30/24 16:05 12/30/24 16:05 12/30/24 16:05 12/30/24 16:05 12/30/24 16:05
Last Documented Vital Signs
Temp Pulse Resp BP Pulse Ox
97.7 F 87 16 90/56 100
12/30/24 23:33 12/30/24 23:33 12/30/24 23:33 12/30/24 23:33 12/30/24 23:33
<Roosevelt Larios Jr., POLINA - Last Filed: 12/31/24 07:17>
Orders/Labs/Results
Orders:
Orders
12/30/24 Breakfast
Regular
At Your Request: Full Participation
12/30/24 15:54
Electrocardiogram (*1) Urgent
Reason for Study: Vertigo / Dizzy
EKG- Treatment ONCE
12/30/24 16:19
Lactated Ringers [Lr] 1,000 ml IV BOLUS
12/30/24 16:28
Complete Blood Count/With Diff Urgent
Comprehensive Metabolic Panel Urgent
12/30/24 17:49
CT Abd/pel Without Iv Or Oral Urgent
Comment:
Reason For Exam: renal failure, hypotensive
12/30/24 17:50
Bladder Scan- Treatment ONCE
12/30/24 18:30
Urinalysis Reflex To Culture Urgent
Date Specimen was Collected: 12/30/24
Time Specimen was Collected: 17:43
Urine Microscopic Reflex Cult Urgent
Lactated Ringers [Lr] 1,000 ml IV BOLUS
12/30/24 20:25
Admit/Transfer Patient As Directed
Co-Sign Provider:
Level of Care: Inpatient admission
Assign to:: Medical/Surgical
Physician / Group: Morgan
Diagnosis: LAMIN
Reason for Hospitalization: LAMIN
Expected length of stay greater than two midnights?: Yes
ELOS- Estimated Length of Stay in days: 2
I certify the patient meets the requirements for IP care: Yes
12/30/24 20:26
Code Status As Directed
Resuscitation Status: Full Code
PRN Pain Medication Management As Directed
May give lesser potent ordered pain med per pt: Yes
preference::
Protocol:: Medication orders for pain may be administered in a
manner that supports deferring to patient preference
when the pt is:
- Requesting an ordered lesser potent pain medication.
Least to most potent pain medications are defined
as: acetaminophen < NSAID < tramadol < opioids
(morphine, oxycodone, hydromorphone).
- Requesting a lesser dose of the same medication IF
ORDERED.
- Requesting a less intrusive route of administration
if both routes are prescribed by the provider (PO <
IV).
12/30/24 21:45
Acetaminophen [Tylenol] 650 mg PO Q4HPRN PRN
Lactated Ringers [Lr] 1,000 ml IV 150 mls/hr
12/30/24 21:45
Activity As Directed
Activity Level: Ambulate
With Assistance
Bladder Scan As Directed
Follow Bladder Retention/Intermittent Cath Algorithm?: Yes
PRN if no void in __ hours: 6
Frequency: Per Retention Algorithm
If Bladder Scan Result >: 400
then:: Straight cath
I/O [Intake/ Output] As Directed
Frequency: Per unit guidelines
MSAS SCORE As Directed
MSAS Score 0-4: Repeat MSAS every 2 hours until 0-4 for three consecutive assessments, then every 4 hours x 48
hours.
MSAS Score 5-7: For MILD withdrawl symptoms. Repeat MSAS and RASS every 2 hours
MSAS Score 8-11: For MODERATE withdrawal symptoms. Repeat MSAS and RASS every 1 hour. Consider ICU or IMU
level of care.
MSAS Score > 11: For SEVERE withdrawal symptoms. Repeat MSAS and RASS every 1 hour. Notify provider, consider
ICU level of care.
MSAS Additional Instructions: If no improvement or no decrease in score from severe to moderate within 12
hours, consult psychiatry
MSAS Notify Provider: Notify provider if patient requires more than 10 mg of Lorazepam in eight hour period.
Orthostatic Vital Signs As Directed
Orthostatic VS Frequency: BID
Pneumatic Compression Sleeves As Directed
Type: Knee high
Straight Cath As Directed
Frequency: Per Retention Algorithm
Additional Instructions: straight cath as needed per acute urinary retention algorithm for 24 hrs
Additional Instructions: for bladder scan greater than 400 mL
Vital Signs As Directed
Frequency: Per unit guidelines
Oxygen Therapy [O2 Therapy] [RESP] Routine
Titrate/Wean O2 to maintain O2 sat greater than (%): 94
DX Deep Vein Thrombosis Video Routine
12/31/24 06:00
Basic Metabolic Panel IN AM
Complete Blood Count/No Diff IN AM
12/31/24 08:00
Sertraline HCl [Zoloft] 50 mg PO DAILY
Abnormal Lab Results
12/30/24 12/30/24
16:28 18:30
MPV 10.5 H fL
(7.4-10.4)
Absolute Monos (auto) 1.3 H 10^3/uL
(0.1-0.6)
Monocytes % 14.5 H %
(1.7-9.3)
Sodium 133 L mmol/L
(135-145)
Chloride 95 L mmol/L
(98-107)
BUN 85 H mg/dl
(9-20)
Creatinine 2.7 H mg/dL
(0.7-1.3)
Glucose 112 H mg/dl
(70-99)
Urine Bacteria (Reflex) Few A
(Negative)
Urine Albumin (Reflex) 1+ A
(Neg - Trace)
12/30/24 16:28
12/30/24 16:28
Vital Signs
Initial and Last Documented VS:
Initial Vital Signs
Temp Pulse Resp BP Pulse Ox
97.6 F 76 18 80/58 99
12/30/24 16:05 12/30/24 16:05 12/30/24 16:05 12/30/24 16:05 12/30/24 16:05
Last Documented Vital Signs
Temp Pulse Resp BP Pulse Ox
97.7 F 87 16 90/56 100
12/30/24 23:33 12/30/24 23:33 12/30/24 23:33 12/30/24 23:33 12/30/24 23:33
<Roosevelt Larios Jr., PA-C - Last Filed: 12/31/24 07:17>
MDM/Problems Addressed
MDM/Problems Addressed:
49-year-old male presenting to the emergency department today with concerns of lightheadedness with position change. Found to be hypotensive on arrival otherwise vital signs are normal. He claims that he has been drinking fluids but did relapse
with alcohol 1 week ago and drank a few days but has not drank over the past few days. His creat was found to be 2.7 and significantly elevated BUN as well. Consistent with prerenal LAMIN. Patient was given a liter of fluids with improving blood
pressure into the 90s over 60s. Patient felt better after fluids. Admitted and obtained for evaluation of potential obstructive pathology but this was normal. Otherwise patient will need to be admitted for LAMIN. Stable throughout ER stay blood
pressure improving after fluids
<Roosevelt Larios Jr., PA-C - Last Filed: 12/31/24 07:17>
*Critical Care Note
Total Time (30-74mins, 75-104mins- exclusive of procedures): Not Applicable
ED Attending Note
<Álvaro Kumar PA-C - Last Filed: 12/30/24 16:20>
-
Portions of this chart may have been created with voice recognition software.� Occasional wrong word or��sound alike� substitutions may have occurred due to the inherent limitations of voice recognition software.
Discharge Plan
Departure
Patient Disposition: Admit
Date of Disposition: 12/30/24
Time of Disposition: 18:56
Admit to: Med/Surg
Admit to doctor: Jared
Presentation/result/management discussed w/ accepting MD/DO: Hospitalist
Patient with high blood pressure during this ER visit?: No
Condition: Good
Covid-19: Not Applicable
Discharge Problem:
LAMIN (acute kidney injury), Hypotension
Interventions
Interventions:
*Risk Screen - Suicide Last Done: 12/30/24 22:42
*General Assessment Last Done: 12/30/24 16:39
*Neglect/Abuse Screening Last Done: 12/30/24 16:05
ED- Fall Risk Assessment Last Done: 12/30/24 16:39
*ED COVID-19 Vaccine History Last Done: 12/30/24 22:42
*Nursing Disposition Last Done: 12/30/24 21:42
ED- Neurological Assessment Last Done: 12/30/24 16:39
ED- Cardiac Assessment Last Done: 12/30/24 16:39
ED Swallowing Screen Last Done: 12/30/24 16:39
Discharge Date and Time
Discharge Date/Time: 12/30/24 21:43
[2024-12-30 16:37] LABS: % Basophils 0.5 % (0-2); % Eosinophils 0.8 % (0-6); % Immature Granulocytes 0.5 % (0-0.5); % Lymphocytes 21.6 % (20.5-51.1); % Monocytes 14.5 % (1.7-9.3); % Neutrophils 62.1 % (42.2-75.2); Absolute Eosinophils 0.1 10^3/uL (0-0.7); Absolute Lymphocytes 1.9 10^3/uL (1.2-3.4); Absolute Monocytes 1.3 10^3/uL (0.1-0.6); Absolute Neutrophils 5.5 10^3/uL (1.4-6.5); Hematocrit 43.6 % (39.0-52.0); Hemoglobin 15.5 g/dL (13.0-18.0); Mean Corp Hgb Conc. 35.6 g/dL (33.0-37.0); Mean Corpuscular Hgb 30.2 pg (27.0-31.0); Mean Platelet Volume 10.5 fL (7.4-10.4); Nucleated Red Blood Cells % 0 % (-); Platelet Count 293 10^3/uL (130-400); Red Blood Cell Count 5.13 10^6/uL (4.70-6.10); Red Cell Dist. Width 13.2 % (11.5-14.5); White Blood Cell Count 8.8 10^3/uL (4.8-10.8)
[2024-12-30] MEDS: LR 1000 IV ×3 (16:48→22:41)
[2024-12-30 16:53] LABS: ALT (SGPT) 41 U/L (0-50); AST (SGOT) 31 U/L (17-59); Albumin 4.5 g/dl (3.5-5.0); Alkaline Phosphatase 73 U/L (38-126); Blood Urea Nitrogen 85 mg/dl (9-20); Calcium 9.4 mg/dl (8.4-10.2); Carbon Dioxide 24 mmol/L (22-30); Chloride 95 mmol/L (98-107); Estimated Creatinine Clearance 34 ml/min; Glucose 112 mg/dl (70-99); Potassium 3.8 mmol/L (3.5-5.1); Sodium 133 mmol/L (135-145); eGFR 27.67
--- NOTE | 2024-12-30 17:09 | EDRN ---
awaiting for a provider to see the pt
--- NOTE | 2024-12-30 17:34 | EDRN ---
Charli WAGNER currently at the pts bedside
[2024-12-30 18:35] LABS: Urine Albumin 1+ (Neg - Trace); Urine Bilirubin Negative (Negative); Urine Character Clear (Clear); Urine Color Yellow; Urine Glucose Negative (Negative); Urine Ketone Negative (Negative); Urine Leukocyte Negative (Negative); Urine Nitrite Negative (Negative); Urine Occult Blood Negative (Negative); Urine Urobilinogen Negative (Neg - 1+)
[2024-12-30 18:47] LABS: Urine Mucus Few; Urine Squamous Cell 0-2 /LPF (Few)
[2024-12-30 18:48] LABS: Urine Calcium Oxalate Crystals Present; Urine Red Blood Cell 0-2 /HPF (0-2)
[2024-12-30 18:49] LABS: Urine Bacteria Few (Negative); Urine White Cell 0-2 /HPF (0-5)
--- NOTE | 2024-12-30 20:27 | HPS.HSE ---
Family Physician
-
Family Physician: Axel Arvizu MD
Chief Complaint
-
Dizziness, Lightheadedness
History of Present Illness
Patient is a 49y M with PMH significant for hypertension and depression who presents to ED complaining of lightheadedness and dizziness. Patient notes that he started a new job this past week. He has been standing for long hours and working in
front of a 500 degree [employer]. He admits that he has not taken time for meals or even water breaks. He has become progressively more lightheaded over the past few days. Today he 'nearly passed out' and describes jerking awake before falling. He
has not had actual syncope, fall or injury. He has had about 3 pints of beer total over the past week. Prior to this he has been sober for about 60 days. He has a history of alcohol excess.
Patient also reports that he was recently treated for abscessed tooth with oral abx. He took a medicine BID x 10 days and finished this early this week. He cannot recall the name. He states that he was seen by his dentist yesterday and
'everything looks good'.
Medical History
Past Medical History
Past Medical History: Reports Other
Additional Past Medical History:
Hypertension
Depression
Past Surgical History: Reports Other
Additional Past Surgical History:
Cholecystectomy
Social History
Tobacco: Smoker (Current some day smoker. )
Alcohol: Former (History of alcohol abuse. Sober x 60 days)
Drug: None
Family History
Family History: Not pertinent
Allergies / Home Medications
Allergies reflects when Allergies were last updated in [facility].
Home Medications with original date entered in [facility]
Allergy/Medication List:
Allergies
Allergy/AdvReac Type Severity Reaction Status Date / Time
strawberry Allergy Unknown Verified 12/30/24 16:17
Home Medications
sertraline 50 mg tablet (Zoloft) 50 mg PO DAILY 03/02/24
acetaminophen 500 mg tablet 500 mg PO Q6HPRN PRN mild pain 12/30/24
cyanocobalamin (vitamin B-12) 1,000 mcg tablet 1,000 mcg PO DAILY 12/30/24
losartan 50 mg tablet 100 mg PO DAILY 12/30/24
Review of Systems
-
History Source: Patient
A 12 point ROS was completed and negative except as noted: Yes
Constitutional: Reports Fatigue; Denies Fever or Chills
Respiratory: Denies Cough or Trouble Breathing
Cardiac: Denies Chest Pain or Palpitations
Abdomen/GI: Denies Abdominal Pain, Nausea, Vomiting or Diarrhea
: Denies Dysuria, Frequency or Flank Pain
Musculoskeletal: Denies Joint Pain or Edema
Neurological: Reports Dizzy; Denies Headache
Psych: Denies Depression or Anxiety
Physical Exam
Vital Signs
Vital Signs
Temp Pulse Resp BP Pulse Ox
97.6 F 83 15 99/64 97
12/30/24 16:05 12/30/24 20:15 12/30/24 19:30 12/30/24 20:00 12/30/24 20:15
Physical Exam
General: Other (49y M in no acute distress.)
HEENT: Moist mucous membranes and PERRLA
Respiratory: Clear; No Wheezes, Rales or Rhonchi
Cardiac: S1/S2 and Regular Rhythm; No Murmur
GI: Soft, Non Tender, Non Distended and Normal Bowel Sounds
Musculoskeletal: No Clubbing, No Cyanosis and No Edema
Neuro: AO x 3
Laboratory Results
-
12/30/24 16:28
12/30/24 16:28
Laboratory Results
Total Bilirubin 1.0 mg/dl (0.2-1.3) 12/30/24 16:28
AST 31 U/L (17-59) 12/30/24 16:28
ALT 41 U/L (0-50) 12/30/24 16:28
Alkaline Phosphatase 73 U/L (38-126) 12/30/24 16:28
Impression/Plan
-
A/P: Patient is a 49y M with PMH significant for hypertension and depression who presents to ED complaining of lightheadedness and dizziness.
LAMIN
- Admit for further evaluation and treatment.
- SCr = 2.7 compared to baseline of 0.6 (only 2 weeks ago).
- Likely multifactorial and related to volume contractions + ARB +/- abx course (not sure which abx).
- Hold losartan.
- IVF support.
- No reported / noted volume losses (N/V/D, etc).
- Monitor for improvement in renal function.
Benign Hypertension
- Relatively hypotensive at present.
- Initial BP in the ED 71/47.
- Holding losartan as noted above.
- IVFs replacement.
Depression
- Stable. Continue sertraline.
Alcohol Use Disorder
- Patient sober for 6 months but admits to 2-3 pints over the past week.
- Low risk for any withdrawal symptoms.
- Encourage continued efforts at sobriety. Patient seems motivated.
DVT Prophylaxis: SCDs
Code Status: Full
[2024-12-31] MEDS: LR 1000 IV (04:41)
[2024-12-31 07:15] VITALS: BP 117/72
[2024-12-31 07:51] LABS: Hemoglobin 13.3 g/dL (13.0-18.0); Mean Corpuscular Hgb 30.2 pg (27.0-31.0); Mean Corpuscular Volume 86.4 fL (80.0-94.0); Mean Platelet Volume 10.2 fL (7.4-10.4); Platelet Count 199 10^3/uL (130-400); White Blood Cell Count 7.6 10^3/uL (4.8-10.8)
[2024-12-31] MEDS: ProAmatine 5 MG PO (08:25)
[2024-12-31] MEDS: ZOLOFT 50 MG PO (08:26)
[2024-12-31 09:52] LABS: Blood Urea Nitrogen 47 mg/dl (9-20); Calcium 8.8 mg/dl (8.4-10.2); Carbon Dioxide 26 mmol/L (22-30); Chloride 102 mmol/L (98-107); Estimated Creatinine Clearance 93 ml/min; Glucose 97 mg/dl (70-99); Potassium 3.4 mmol/L (3.5-5.1); Sodium 137 mmol/L (135-145); eGFR > 60.00
[2024-12-31 11:27] VITALS: BP 110/63
--- NOTE | 2024-12-31 11:44 | W.PN.HOSP.TC ---
Today's Communication/Plan
-
monitor BP
dc IVF
If bp remains stable-plan for possible dc later today
Assessment / Plan
Assessment / Plan
A/P: Patient is a 49y M with PMH significant for hypertension and depression who presents to ED complaining of lightheadedness and dizziness.
LAMIN likely 2/2 prerenal 2/2 dehydration
- SCr = 2.7 compared to baseline of 0.6 (only 2 weeks ago).
- Likely multifactorial and related to volume contractions + ARB +/- abx course (not sure which abx).
- s/p aggressive IVF. Monitor off IVF. Cr stabilized and wnl 1.
- No reported / noted volume losses (N/V/D, etc).
Benign Hypertension
- Relatively hypotensive at present.
- Initial BP in the ED 71/47. Improved to 110/63. Dc midodrine .
- Holding losartan as noted above.
- restart losartan if BP stabilizing post IVF. Need strict BP control with TAA.
Depression
- Stable. Continue sertraline.
Alcohol Use Disorder
- Patient sober for 6 months but admits to 2-3 pints over the past week.
- Low risk for any withdrawal symptoms.
- Encourage continued efforts at sobriety. Patient seems motivated.
Thoracic aortic aneurysm 4.1 cm
-
DVT Prophylaxis: SCDs
Code Status: Full
Anticipated Discharge: Within 24 hours
Subjective/Interval History
-
Date of Service: December 31, 2024
states feeling better
no lightheadness or dizziness
Objective Data
-
Labs:
Laboratory Results
12/31/24
06:50
WBC 7.6
Hgb 13.3
Hct 38.0 L
Plt Count 199 D
Sodium 137
Potassium 3.4 L
Chloride 102
Carbon Dioxide 26
BUN 47 H
Creatinine 1.0
Glucose 97
Calcium 8.8
Vital Signs:
Vital Signs
Temp Pulse Resp BP Pulse Ox
98 F 75 17 110/63 98
12/31/24 07:15 12/31/24 11:27 12/31/24 07:15 12/31/24 11:27 12/31/24 07:15
I&O
12/30/24 12/31/24 01/01/25
06:59 06:59 06:59
Intake Total 2160 / 2160 360 / 360
Balance 2160 / 2160 360 / 360
Physical Exam
-
General: Well Developed and No Apparent Distress
HEENT: Normocephalic, Atraumatic and Moist Mucous Membranes
Respiratory: Clear to Auscultation
Cardiac: Regular Rhythm and S1/S2; Negative Murmur, Rub or Gallop
GI: Soft, Nontender, Nondistended and Normal Bowel Sounds; Negative Organomegaly
Rectal: Deferred by Provider
Musculoskeletal: No Clubbing, No Cyanosis and No Edema
Skin: Negative Rash
Neuro: Awake, Alert, Oriented, AO x 3, No Motor Deficits and Nonfocal/Grossly Intact
Data Reviewed
-
Total Time Spent with Patient (in minutes): 55
[2024-12-31] MEDS: LR IV (11:48)
[2024-12-31] MEDS: KCL 20 MEQ PO (12:12)
[2024-12-31 15:23] VITALS: BP 129/74
--- NOTE | 2024-12-31 15:37 | W.DCSUMMARY ---
Discharge Summary
Discharge Data
Date of Admission: 12/30/24
Date of Discharge: 12/31/24
-
Pending Results: No
Hospital Course
49-year-old male past medical history of thoracic aortic aneurysm, mood disorder, B12 deficiency was presented with lightheadedness and weakness. Patient was found to be severely dehydrated. Patient had elevated creatinine and was started on
aggressive IV fluid resuscitation. CT abdomen pelvis was done on admission without any evidence of acute process. Patient blood pressure stabilized. Patient IV fluid was discontinued. Patient was able to tolerate p.o. intake. Patient blood
pressure was 129/74. Patient was tolerating diet without any difficulty. Patient was ambulating without any difficulty. Recommend to increase p.o. intake. Patient be discharged home with recommendation to repeat BMP with primary doctor.
Discharge Plan
-
Patient Disposition: Home (Routine Discharge)
Discharge Diagnosis/Procedures: Acute kidney injury
Severe dehydration
Condition: Fair
Diet: Regular
Activity: With assistance and As tolerated
Driving Restrictions: As prior to admission
Blood Work: BMP in 1 week via primary doctor
Referrals:
Axel Arvizu MD [Family Provider] - in less than 1 week
Prescriptions:
Continued
sertraline [Zoloft] 50 mg Tablet
50 mg PO DAILY
acetaminophen 500 mg Tablet
500 mg PO Q6HPRN PRN (Reason: mild pain)
cyanocobalamin (vitamin B-12) 1,000 mcg Tablet
1,000 mcg PO DAILY
Held
losartan 50 mg tablet
100 mg PO DAILY
Hold Instructions: Resume on 01/02/25.
Discharge Orders:
Discharge Patient (As Directed); Ordered 12/31/24
Ordered By: Juan Painting
Discharge Date and Time
Print Language: PERSIAN
--- NOTE | 2024-12-31 16:30 | CM ---
CM reviewed medical records. NO needs noted at this time.
PLAN: Home no needs.
== END 2024-12-31 17:01 | disposition home or self-care (01) | DRG 641 ==
LOC: 1 ACUTE 20:56
PROVIDERS: Physician Assistant; ADMITTING PHYSICIAN Hospitalist; ATTENDING PHYSICIAN Hospitalist; EMERGENCY PHYSICIAN Emergency Medicine; FAMILY PHYSICIAN Internal Medicine
DX: E86.0 Dehydration (principal); N17.9 Acute kidney failure, unspecified; I10 Essential (primary) hypertension; F32.A Depression, unspecified; F17.200 Nicotine dependence, unspecified, uncomplicated; F10.10 Alcohol abuse, uncomplicated; I71.21 Aneurysm of the ascending aorta, without rupture; K21.9 Gastro-esophageal reflux disease without esophagitis; Z79.899 Other long term (current) drug therapy; F39 Unspecified mood [affective] disorder; E53.8 Deficiency of other specified B group vitamins
CPT/HCPCS: 74176; 80048; 80053; 81003; 81015; 85025; 85027; 93005; 96360; 99285

== ENCOUNTER 2025-02-16 13:22 | Emergency (ER) | payer MEDICAID, SELFPAY ==
[2025-02-16 13:26] VITALS: BP 138/95
[2025-02-16 13:49] LABS: % Basophils 0.4 % (0-2); % Eosinophils 0.3 % (0-6); % Immature Granulocytes 0.5 % (0-0.5); % Lymphocytes 12.8 % (20.5-51.1); % Monocytes 5.9 % (1.7-9.3); % Neutrophils 80.1 % (42.2-75.2); Absolute Basophils 0.1 10^3/uL (0-0.2); Absolute Immature Granulocytes 0.1 10^3/uL (0-0.05); Absolute Lymphocytes 1.6 10^3/uL (1.2-3.4); Absolute Monocytes 0.7 10^3/uL (0.1-0.6); Absolute Neutrophils 10.1 10^3/uL (1.4-6.5); Hematocrit 44.4 % (39.0-52.0); Hemoglobin 15.7 g/dL (13.0-18.0); Mean Corp Hgb Conc. 35.4 g/dL (33.0-37.0); Mean Corpuscular Hgb 30.8 pg (27.0-31.0); Mean Corpuscular Volume 87.2 fL (80.0-94.0); Mean Platelet Volume 9.4 fL (7.4-10.4); Nucleated Red Blood Cells % 0 % (-); Platelet Count 298 10^3/uL (130-400); Red Blood Cell Count 5.09 10^6/uL (4.70-6.10); Red Cell Dist. Width 13.9 % (11.5-14.5); White Blood Cell Count 12.6 10^3/uL (4.8-10.8)
[2025-02-16 14:36] LABS: ALT (SGPT) 32 U/L (0-50); AST (SGOT) 50 U/L (17-59); Albumin 4.9 g/dl (3.5-5.0); Alkaline Phosphatase 83 U/L (38-126); Blood Urea Nitrogen 18 mg/dl (9-20); Calcium 8.7 mg/dl (8.4-10.2); Carbon Dioxide 18 mmol/L (22-30); Chloride 106 mmol/L (98-107); Glucose 235 mg/dl (70-99); Potassium 3.1 mmol/L (3.5-5.1); Sodium 144 mmol/L (135-145); Total Bilirubin 0.7 mg/dl (0.2-1.3); Total Protein 7.6 g/dl (6.3-8.2); eGFR > 60.00
[2025-02-16 15:56] VITALS: BP 136/97
--- NOTE | 2025-02-16 16:09 | ED.GENMED ---
History of Present Illness
General
Chief Complaint: Blood Pressure Problem
Source: patient and records
Exam Limitations: none
Time Seen by Provider: 02/16/25 15:42
Nursing documentation reviewed up to this point in time: agreed with
History of Present Illness
History of Present Illness:
49-year-old male with a past medical history of hypertension who presents to the emergency department for evaluation of hypertension. Patient says that prior to arrival he was feeling increased stressed and felt 'a bit off' which prompted him to
check his blood pressure. He noted that it was severely elevated to 173/113 which is higher than he has ever had which prompted him to come to the hospital. He denies any other complaints�denies headache, chest pain, shortness of breath, change in
his vision or speech, focal weakness or numbness or any other complaints. He does admit to recent dietary indiscretions including eating [employer] for lunch today and 'eating like crap' over the weekend. He currently takes losartan 100 mg daily
and he did take it this morning. He says he missed a dose a few days ago but is generally compliant. No recent adjustments to his medication.
Past History
Past History
ED Past Medical History: GERD
ED Past Surgical History: Cholecystectomy
Patient has exhibited threatening behavior?: No
PSI?: No
Social History
Tobacco: Smoker
Alcohol: Daily (Beer 2-3)
Personal:
Living: with family
Employment: Employed
Family History
Family History: Adopted
Review of Systems
Review of Systems
All Other Systems: ROS reviewed and negative except as documented in HPI and ROS
Constitutional: Denies fever
Respiratory: Denies trouble breathing
Cardiac: Denies chest pain or palpitations
ABD/GI: Denies abdominal pain, nausea or vomiting
: Denies flank pain
Musculoskeletal: Denies neck pain or back pain
Neurological: Denies dizzy, headache, weakness or numbness
Phy Exam
Physical Exam
Physical Exam:
General: Awake, alert, oriented x3; no acute distress
Head: Normocephalic, atraumatic
Eyes: Conjunctiva normal, sclera anicteric
Throat: Airway intact, handling secretions
Neck: Trachea midline, supple without meningismus
Lungs: Clear to auscultation bilaterally, no wheezing, rales, rhonchi
Heart: Regular rate and rhythm, no murmurs, gallops, or rubs�tachycardia in triage normalized by my assessment
Abd: Soft, non distended, nontender
Neuro: Cranial nerves grossly intact, speech fluid, motor and sensory intact
Extremities: No edema in extremities, equal pulses in all extremities
Scores
Heart Failure Risk
Heart Failure Risk Score: Not Applicable
Heart Score for Chest Pain Patients
STEMI patient?: Not applicable
Withdrawal Assessment of Alcohol
Withdrawal Assessment Completed?: Not applicable
Course
Orders/Labs/Results
Orders:
Orders
02/16/25 13:31
EKG [Electrocardiogram (*1)] Urgent
Reason for Study: Tachycardia
EKG- Treatment ONCE
02/16/25 13:34
Alcohol Urgent
CBC/With Diff [Complete Blood Count/With Diff] Urgent
Comprehensive Metabolic Panel Urgent
Glycohemoglobin (HgbA1c) Urgent
02/16/25 15:43
Potassium Chloride [KCl] 40 meq PO NOW STA
02/16/25 15:44
Electrocardiogram (*1) Urgent
Reason for Study: Hypertension, Benign
EKG- Treatment ONCE
02/16/25 15:56
Add On- LAB Urgent
Tests Added?: Hb A1C
02/16/25 16:13
Add On- LAB Urgent
Tests Added?: ETOH
0.9% Sodium Chloride 1000 ml [Nss] 1,000 ml IV BOLUS
02/16/25 16:21
Acetone [B-Hydroxybutyrate] Urgent
Urinalysis Reflex To Culture Urgent
Date Specimen was Collected: 02/16/25
Time Specimen was Collected: 16:14
Urine Microscopic Reflex Cult Urgent
02/16/25 17:29
Basic Metabolic Panel Urgent
Abnormal Lab Results
02/16/25 02/16/25 02/16/25
13:34 16:21 17:29
WBC 12.6 H 10^3/uL
(4.8-10.8)
Abs Immat Gran (auto) 0.1 H 10^3/uL
(0-0.05)
Absolute Neuts (auto) 10.1 H 10^3/uL
(1.4-6.5)
Absolute Monos (auto) 0.7 H 10^3/uL
(0.1-0.6)
Neutrophils % 80.1 H %
(42.2-75.2)
Lymphocytes % 12.8 L %
(20.5-51.1)
Potassium 3.1 L mmol/L 3.4 L mmol/L
(3.5-5.1) (3.5-5.1)
Carbon Dioxide 18 L mmol/L
(22-30)
Glucose 235 H mg/dl
(70-99)
Ur Occult Blood Reflex 1+ A
(Negative)
Urine Bacteria (Reflex) Few A
(Negative)
Urine Glucose 1+ A
(Negative)
Urine Albumin (Reflex) 2+ A
(Neg - Trace)
02/16/25 13:34
02/16/25 17:29
Vital Signs
Initial and Last Documented VS:
Initial Vital Signs
Temp Pulse Resp BP Pulse Ox
36.6 C 134 16 138/95 98
02/16/25 13:26 02/16/25 13:26 02/16/25 13:26 02/16/25 13:26 02/16/25 13:26
Last Documented Vital Signs
Temp Pulse Resp BP Pulse Ox
36.6 C 93 16 167/106 95
02/16/25 13:26 02/16/25 15:56 02/16/25 15:56 02/16/25 18:00 02/16/25 18:30
MDM/Problems Addressed
Differential Diagnosis Includes:
Asymptomatic hypertension
MDM/Problems Addressed:
49-year-old male presents for evaluation of hypertension. Blood pressure was severely elevated this morning. It has since normalized. He says he was stressed and felt anxious/off this morning but feels better now has no specific complaints
otherwise. Admits to recent dietary indiscretions. Physical exam as above. Initial EKG showed some mild tachycardia which normalized on repeat. He had screening lab work sent off including a CBC which showed leukocytosis of unclear acute
clinical significance. His CMP showed hypokalemia 3.1 which will replete p.o. He has hyperglycemia to 235�no document history of diabetes. Noted marginal metabolic acidosis with bicarb of 18. Added on acetone level, urinalysis, VBG. Had alcohol
level he does have a history of alcohol use. Will reassess after the above.
While he did have some mild hyperglycemia and metabolic acidosis his beta hydroxybutyrate is negative, no ketones on urinalysis�no signs of diabetic ketoacidosis. Will plan to initiate metformin for new onset of diabetes. I called patient's
primary care office they will follow-up with him in the office to follow-up on his blood pressure and his blood sugar. Vitals have been stable, repeat BMP essentially normalized after fluids. Stable for discharge.
Chronic conditions affecting care:
Hypertension
Acute Exacerbation and/or Progression of Chronic Illness: HTN
*Pulse Oximetry
Patient hypoxic: no
*EKG
Interpreted by ED Provider?: Yes
Heart Rate: 121
Rate: tachycardiac
Rhythm: sinus and sinus tachycardia
[place]: normal axis
Interval: normal interval
QRS Pattern: normal QRS
Ischemia: non-specific ST changes
*Critical Care Note
Total Time (30-74mins, 75-104mins- exclusive of procedures): Not Applicable
Data Reviewed
Review of Other/Old Records Reveals: Labs and Records
Source: patient and records
Patient Management
Discussion with other providers: PCP (Discussed with his primary doctor)
ED Attending Note
-
Portions of this chart may have been created with voice recognition software.� Occasional wrong word or��sound alike� substitutions may have occurred due to the inherent limitations of voice recognition software.
Discharge Plan
Departure
Patient Disposition: Home (Routine Discharge)
Date of Disposition: 02/16/25
Time of Disposition: 19:15
Patient with high blood pressure during this ER visit?: Yes
Discharge Problem:
Diabetes mellitus, Hypertension, Hypokalemia
Instructions: Diabetes and diet, BLOOD PRESSURE
Prescriptions:
New
metformin 500 mg tablet
500 mg PO BID Qty: 60 0RF
No Action
sertraline [Zoloft] 50 mg Tablet
50 mg PO DAILY
acetaminophen 500 mg Tablet
500 mg PO Q6HPRN PRN (Reason: mild pain)
losartan 50 mg tablet
100 mg PO DAILY
cyanocobalamin (vitamin B-12) 1,000 mcg Tablet
1,000 mcg PO DAILY
Referrals:
Axel Arvizu MD [Family Provider] - Call in 1-3 days for appt
Activity Restrictions/Additional Instructions:
Thank you for visiting the Emergency Department at [facility].
1. Please schedule a follow up appointment as directed. Call first thing tomorrow morning to make an appointment.
2. If indicated, please take your medications as instructed and indicated on discharge paperwork.
3. If any of your symptoms do not improve, or persist, or become more severe within 6-12 hours, please return to the emergency department for further care.
4. Please return to the emergency department if you develop a headache, neck pain/stiffness, fever greater than 100.4F, chest pain, shortness of breath, persistent nausea, vomiting, slurred speech, difficulty walking, numbness/tingling, weakness,
signs of infection or any other symptoms that are worrisome to you.
Please call [phone] if you have any questions.
Interventions
Interventions:
*Risk Screen - Suicide Last Done: 02/16/25 13:26
*General Assessment Last Done: 02/16/25 15:54
*Neglect/Abuse Screening Last Done: 02/16/25 13:26
*ED- Fall Risk Assessment Last Done: 02/16/25 15:54
*ED COVID-19 Vaccine History Last Done: 02/16/25 15:54
ED- Cardiac Assessment Last Done: 02/16/25 15:54
ED- Neurological Assessment Last Done: 02/16/25 15:54
ED- Pulmonary Assessment Last Done: 02/16/25 15:54
Discharge Date and Time
Print Language: [place] CITIZ[place]
[2025-02-16] MEDS: KCL 40 MEQ PO (16:10)
[2025-02-16] MEDS: NSS 1000 IV (16:22)
[2025-02-16 16:27] VITALS: BP 156/104
[2025-02-16 16:45] LABS: Alcohol 105 mg/dl
[2025-02-16 17:01] LABS: Urine Albumin 2+ (Neg - Trace); Urine Bilirubin Negative (Negative); Urine Character Cloudy (Clear); Urine Color Yellow; Urine Glucose 1+ (Negative); Urine Ketone Negative (Negative); Urine Leukocyte Negative (Negative); Urine Nitrite Negative (Negative); Urine Occult Blood 1+ (Negative); Urine Urobilinogen Negative (Neg - 1+)
[2025-02-16 17:14] LABS: B-Hydroxybutyrate 0.14 mmol/L (0.02-0.27)
[2025-02-16 17:19] LABS: Urine Squamous Cell 0-2 /LPF (Few)
[2025-02-16 17:21] LABS: Urine Bacteria Few (Negative); Urine Red Blood Cell 0-2 /HPF (0-2); Urine White Cell 0-2 /HPF (0-5)
[2025-02-16 18:00] VITALS: BP 167/106
[2025-02-16 19:03] LABS: Blood Urea Nitrogen 16 mg/dl (9-20); Calcium 8.6 mg/dl (8.4-10.2); Carbon Dioxide 24 mmol/L (22-30); Chloride 107 mmol/L (98-107); Glucose 78 mg/dl (70-99); Potassium 3.4 mmol/L (3.5-5.1); Sodium 141 mmol/L (135-145); eGFR > 60.00
[2025-02-16 19:06] VITALS: BP 167/110
== END 2025-02-16 20:07 | disposition home or self-care (01) ==
LOC: EMR 13:22
PROVIDERS: Student in an Organized Health Care Education/Training Program; EMERGENCY PHYSICIAN Emergency Medicine; FAMILY PHYSICIAN Internal Medicine
DX: E11.65 Type 2 diabetes mellitus with hyperglycemia (principal); I10 Essential (primary) hypertension; E87.6 Hypokalemia; K21.9 Gastro-esophageal reflux disease without esophagitis; F17.200 Nicotine dependence, unspecified, uncomplicated; Z79.899 Other long term (current) drug therapy; Z90.49 Acquired absence of other specified parts of digestive tract
CPT/HCPCS: 99283; 96360; 80048; 80053; 81003; 81015; 82010; 82077; 83036; 85025; 93005

== ENCOUNTER 2025-05-17 20:25 | Inpatient (IN) | payer OTHER, SELFPAY ==
[2025-05-17] VITALS (25 sets, daily range): BP systolic 61–131; BP diastolic 49–92; PULSE 83–98; BMI 24.4; BMI 24.6
[2025-05-17 16:22] LABS: Hematocrit 43.7 % (39.0-52.0); Hemoglobin 15.9 g/dL (13.0-18.0); Mean Corp Hgb Conc. 36.4 g/dL (33.0-37.0); Mean Corpuscular Volume 87.1 fL (80.0-94.0); Nucleated Red Blood Cells % 0 % (-); Platelet Count 457 10^3/uL (130-400); Red Cell Dist. Width 12.8 % (11.5-14.5)
[2025-05-17 16:46] LABS: ALT (SGPT) 24 U/L (0-50); AST (SGOT) 37 U/L (17-59); Albumin 5.4 g/dl (3.5-5.0); Alkaline Phosphatase 88 U/L (38-126); Blood Urea Nitrogen 43 mg/dl (9-20); Calcium 10.2 mg/dl (8.4-10.2); Carbon Dioxide 16 mmol/L (22-30); Chloride 104 mmol/L (98-107); Estimated Creatinine Clearance 26 ml/min; Glucose 124 mg/dl (70-99); Potassium 4.3 mmol/L (3.5-5.1); Sodium 136 mmol/L (135-145); Total Protein 9.5 g/dl (6.3-8.2); eGFR 18.96
[2025-05-17 16:57] LABS: Troponin I 0.012 ng/ml
--- NOTE | 2025-05-17 18:16 | ED.GENMED ---
History of Present Illness
General
Chief Complaint: Chest Pain
Source: patient
Exam Limitations: none
Time Seen by Provider: 05/17/25 17:40
Nursing documentation reviewed up to this point in time: agreed with
History of Present Illness
History of Present Illness:
Patient to ED with report of nausesa, chest pain. Symptoms started last PM. 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 Reports that temp in kitchen is >90 degrees consistently. Tried todrink last PM but became nauseated.
He returned to work today and sympotms escalated. Brought self to ED
Past History
Past History
ED Past Medical History: GERD
ED Past Surgical History: Cholecystectomy
Patient has exhibited threatening behavior?: No
PSI?: No
Social History
Tobacco: Smoker
Alcohol: Daily (Beer 2-3)
Personal:
Living: with family
Employment: Employed
Family History
Family History: Adopted
Review of Systems
Review of Systems
Allergies reviewed?: Yes
All Other Systems: ROS reviewed and negative except as documented in HPI and ROS
Constitutional: Reports fatigue
EENT: Reports no symptoms
Respiratory: Reports no symptoms
Cardiac: Reports chest pain
ABD/GI: Reports nausea
: Reports other (urinated once today - hours before arrival)
Musculoskeletal: Reports no symptoms
Skin: Reports no symptoms
Neurological: Reports weakness
Psychiatric: Reports no symptoms
Phy Exam
General Physical Exam
General Presentation: mild distress
General age: appears stated age
General Skin: warm and dry
General Habitus: normal
Cardiovascular Exam
Cardiovascular Exam: regular rate/rhythm and no edema
Pulmonary Exam
Pulmonary Exam: lungs clear and no respiratory distress
Gastrointestinal Exam
Gastrointestinal Exam: non tender and soft
Neurological Exam
Neurological Exam: alert and oriented x3
Musculoskeletal Exam
Musculoskeletal Exam: full ROM and neuro vasc intact
Skin Exam
Skin Exam: normal color and warm/dry
Psychiatric Exam
Psychiatric Exam: normal mood/affect
Scores
Heart Score for Chest Pain Patients
STEMI patient?: No
History: Slightly or Non-Suspicious
ECG: Normal
Age: >45 - <65 years
Risk Factors: 1 or 2 Risk Factors
Troponin: </= Normal Limit
Heart Score for Chest Pain Patients: 2
Heart Score Risk: 2.5% MACE over next 6 weeks
Sepsis
Sepsis Screening
Sepsis Assessment: Sepsis Ruled Out
Sepsis Screen
Sepsis Screen: Sepsis Ruled Out
Date: 05/17/25
Time: 22:53
Course
Orders/Labs/Results
Orders:
Orders
05/17/25 Breakfast
Regular
At Your Request: Full Participation
05/17/25 15:34
ECG [Electrocardiogram (*1)] Urgent
Reason for Study: Chest Pain
EKG- Treatment ONCE
05/17/25 16:13
CMP [Comprehensive Metabolic Panel] Urgent
Complete Blood Count/With Diff Urgent
Creatine Phosphokinase Urgent
Comment: ADD ON
TSH Reflex To Free T4 Urgent
Comment: ADD ON
05/17/25 16:19
Troponin I Urgent
05/17/25 16:23
Add On- LAB Urgent
Tests Added?: ck
05/17/25 18:58
0.9% Sodium Chloride 1000 ml [Nss] 1,000 ml IV BOLUS
Ondansetron Injectable [Zofran] 4 mg IV NOW STA
05/17/25 20:08
Admit/Transfer Patient As Directed
Co-Sign Provider:
Level of Care: Inpatient admission
Assign to:: Telemetry
Physician / Group: Morgan
Diagnosis: LAMIN
Reason for Telemetry: Arrhythmia
Date to Stop Telemetry: 05/20/25
Time to Stop Telemetry: 11:00
Reason for Hospitalization: LAMIN
Expected length of stay greater than two midnights?: Yes
ELOS- Estimated Length of Stay in days: 2
I certify the patient meets the requirements for IP care: Yes
PRN Pain Medication Management As Directed
May give lesser potent ordered pain med per pt: Yes
preference::
Protocol:: Medication orders for pain may be administered in a
manner that supports deferring to patient preference
when the pt is:
- Requesting an ordered lesser potent pain medication.
Least to most potent pain medications are defined
as: acetaminophen < NSAID < tramadol < opioids
(morphine, oxycodone, hydromorphone).
- Requesting a lesser dose of the same medication IF
ORDERED.
- Requesting a less intrusive route of administration
if both routes are prescribed by the provider (PO <
IV).
05/17/25 20:09
Code Status As Directed
Resuscitation Status: Full Code
05/17/25 21:29
0.9% Sodium Chloride 1000 ml [Nss] 1,000 ml IV 175 mls/hr
Acetaminophen [Tylenol] 650 mg PO Q4HPRN PRN
Ondansetron Injectable [Zofran] 4 mg IV Q6HPRN PRN
05/17/25 21:29
Activity As Directed
Activity Level: Ambulate
Bladder Scan As Directed
Follow Bladder Retention/Intermittent Cath Algorithm?: Yes
PRN if no void in __ hours: 6
Frequency: Per Retention Algorithm
If Bladder Scan Result >: 400
then:: Straight cath
I/O [Intake/ Output] As Directed
Frequency: Per unit guidelines
Orthostatic Vital Signs As Directed
Orthostatic VS Frequency: BID
Pneumatic Compression Sleeves As Directed
Type: Knee high
Straight Cath As Directed
Frequency: Per Retention Algorithm
Additional Instructions: straight cath as needed per acute urinary retention algorithm for 24 hrs
Additional Instructions: for bladder scan greater than 400 mL
Vital Signs As Directed
Frequency: Per unit guidelines
Weight As Directed
Frequency: Daily
Oxygen Therapy [O2 Therapy] [RESP] Routine
Titrate/Wean O2 to maintain O2 sat greater than (%): 94
DX Deep Vein Thrombosis Video Routine
05/18/25 06:00
Basic Metabolic Panel IN AM
Complete Blood Count/No Diff IN AM
05/20/25 11:00
DC Protocol for Telemetry ONCE
Abnormal Lab Results
05/17/25
16:13
WBC 14.7 H 10^3/uL
(4.8-10.8)
MCH 31.7 H pg
(27.0-31.0)
Plt Count 457 H 10^3/uL
(130-400)
Abs Immat Gran (auto) 0.1 H 10^3/uL
(0-0.05)
Absolute Neuts (auto) 10.3 H 10^3/uL
(1.4-6.5)
Absolute Monos (auto) 2.0 H 10^3/uL
(0.1-0.6)
Immature Gran % 0.7 H %
(0-0.5)
Lymphocytes % 14.5 L %
(20.5-51.1)
Monocytes % 13.7 H %
(1.7-9.3)
Carbon Dioxide 16 L mmol/L
(22-30)
BUN 43 H mg/dl
(9-20)
Creatinine 3.7 H mg/dL
(0.7-1.3)
Glucose 124 H mg/dl
(70-99)
Total Bilirubin 1.6 H mg/dl
(0.2-1.3)
Creatine Kinase 258 H U/L
(55-170)
Total Protein 9.5 H g/dl
(6.3-8.2)
Albumin 5.4 H g/dl
(3.5-5.0)
05/17/25 16:13
05/17/25 16:13
Vital Signs
Initial and Last Documented VS:
Initial Vital Signs
Pulse Resp Pulse Ox
116 20 100
05/17/25 15:39 05/17/25 15:39 05/17/25 15:39
Last Documented Vital Signs
Temp Pulse Resp BP Pulse Ox
98.5 F 84 19 131/79 99
05/17/25 21:38 05/17/25 21:38 05/17/25 21:38 05/17/25 21:38 05/17/25 21:38
*Pulse Oximetry
SaO2: 97
Oxygen Mode of Delivery: Room air
Patient hypoxic: no
*Critical Care Note
Total Time (30-74mins, 75-104mins- exclusive of procedures): Not Applicable
Update Note
Update Note:
Patient to ED wtih repport of weakness, nausea, chest pain. Hypotensive on arrival. 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 Labs reviewed. Creat 3.7. Denies and renal issues. Given 2LNSS so far and his symptoms have
all resolved. States he is feeling much better. Still no urine output. Will give and addional LNSS, admit to hospitalist for severe dehydration, ARF
ED Attending Note
-
Portions of this chart may have been created with voice recognition software.� Occasional wrong word or��sound alike� substitutions may have occurred due to the inherent limitations of voice recognition software.
Discharge Plan
Departure
Patient Disposition: Admit
Date of Disposition: 05/17/25
Time of Disposition: 18:23
Presentation/result/management discussed w/ accepting MD/DO: Hospitalist
Patient with high blood pressure during this ER visit?: No
Condition: Fair
Discharge Problem:
Dehydration, Acute renal failure (ARF)
Interventions
Interventions:
*Risk Screen - Suicide Last Done: 05/17/25 15:57
*General Assessment Last Done: 05/17/25 15:57
*Neglect/Abuse Screening Last Done: 05/17/25 15:57
*ED- Fall Risk Assessment Last Done: 05/17/25 15:57
*ED COVID-19 Vaccine History Last Done: 05/17/25 15:57
*Nursing Disposition Last Done: 05/17/25 21:12
ED- Cardiac Assessment Last Done: 05/17/25 15:57
Discharge Date and Time
Discharge Date/Time: 05/17/25 21:21
[2025-05-17] MEDS: NSS 1000 IV ×2 (19:00→21:51)
[2025-05-17] MEDS: ZOFRAN 4 MG IV (19:01)
--- NOTE | 2025-05-17 19:59 | EDRN ---
Received in report by previous Rn Mary, pt received 2000mL NS Bolus prior to being seen by provider for low BP.
--- NOTE | 2025-05-17 20:14 | HPS.HSE ---
Family Physician
-
Family Physician: Axel Arvizu MD
Chief Complaint
-
Dizziness, Lightheadedness
History of Present Illness
Patient is a 49y M with PMH significant for hypertension and ascending aortic aneurysm who presents to ED complaining of lightheadedness and dizziness. Patient notes that he started to feel very over-heated and exhausted starting yesterday while
at work. 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 He notes that he felt nauseated last PM. He had a few episodes of small volume 'spitting up'. No large amount of emesis. No diarrhea. He drank about 8-10
bottles of Aquafina throughout the day yesterday.
Today he went to work and began to feel lightheaded and dizzy. He presented to the ED for further evaluation.
Patient had an identical episodes in December of this year.
He denies any supplements or illicit substance use. He states that he takes Advil in the mornings probably 4 days a week for 'aches and pains'.
He is struggling with alcohol use disorder. He has long periods of sobriety with intermittent relapses. He estimates that he has 6-8 drinks in a day during his relapse episodes. His last drink was 72 hours ago.
Medical History
Past Medical History
Past Medical History: Reports Other
Additional Past Medical History:
Hypertension
Depression
Ascending Aortic Aneurysm
Alcohol Use Disorder
Past Surgical History: Reports Other
Additional Past Surgical History:
Cholecystectomy
Social History
Tobacco: Smoker (Current some day smoker. )
Alcohol: Former (History of alcohol abuse. Intermittent / brief relapses with periods of sobriety. Last drink 72 hours ago.)
Drug: None
Family History
Family History: Not pertinent
Allergies / Home Medications
Allergies reflects when Allergies were last updated in [employer].
Home Medications with original date entered in [employer]
Allergy/Medication List:
Allergies
Allergy/AdvReac Type Severity Reaction Status Date / Time
strawberry Allergy Unknown Verified 12/30/24 16:17
Home Medications
sertraline 50 mg tablet (Zoloft) 50 mg PO DAILY 03/02/24
acetaminophen 500 mg tablet 500 mg PO Q6HPRN PRN mild pain 12/30/24
cyanocobalamin (vitamin B-12) 1,000 mcg tablet 1,000 mcg PO DAILY 12/30/24
losartan 50 mg tablet 100 mg PO DAILY 12/30/24
Review of Systems
-
History Source: Patient
A 12 point ROS was completed and negative except as noted: Yes
Constitutional: Reports Fatigue; Denies Fever or Chills
Respiratory: Denies Cough or Trouble Breathing
Cardiac: Denies Chest Pain or Palpitations
Abdomen/GI: Reports Nausea; Denies Abdominal Pain, Vomiting or Diarrhea
: Denies Dysuria, Frequency or Flank Pain
Musculoskeletal: Denies Joint Pain or Edema
Neurological: Reports Dizzy; Denies Headache
Psych: Denies Depression or Anxiety
Physical Exam
Vital Signs
Vital Signs
Pulse Resp BP Pulse Ox
88 14 121/74 98
05/17/25 20:00 05/17/25 20:00 05/17/25 20:00 05/17/25 20:00
Physical Exam
General: Other (49y M in no acute distress.)
HEENT: Moist mucous membranes and PERRLA
Respiratory: Clear; No Wheezes, Rales or Rhonchi
Cardiac: S1/S2 and Regular Rhythm; No Murmur
GI: Soft, Non Tender, Non Distended and Normal Bowel Sounds
Musculoskeletal: No Clubbing, No Cyanosis and No Edema
Neuro: AO x 3
Laboratory Results
-
05/17/25 16:13
05/17/25 16:13
Laboratory Results
Total Bilirubin 1.6 mg/dl (0.2-1.3) H 05/17/25 16:13
AST 37 U/L (17-59) 05/17/25 16:13
ALT 24 U/L (0-50) 05/17/25 16:13
Alkaline Phosphatase 88 U/L (38-126) 05/17/25 16:13
Troponin I 0.012 ng/ml 05/17/25 16:19
Impression/Plan
-
A/P: Patient is a 49y M with PMH significant for hypertension and ascending aortic aneurysm who presents to ED complaining of lightheadedness and dizziness.
LAMIN
- Admit for further evaluation and treatment.
- SCr = 3.7 compared to baseline of 0.7.
- Likely multifactorial and related to volume contractions + ARB +/- alcohol use.
- Hold losartan - would probably change to an alternate BP control medication to avoid similar episodes in the future.
- IVF support overnight. Patient previously noted to have rapid reversal of LAMIN with IVFs.
- Monitor for improvement in renal function.
- Patient counseled to avoid NSAIDs in the future and to continue efforts at alcohol abstinence.
Benign Hypertension
Ascending Aortic Aneurysm
- Relatively hypotensive at present.
- Initial BP in the ED 65/49.
- Holding losartan as noted above.
- IVFs replacement.
- Would consider alternate agent for BP control as noted - amlodipine, nifedipine, etc.
- Patient should have updated imaging re: aneurysm - but will need to await recovery of renal function before CTA.
- Check Echo.
- Monitor for any chest pain, dyspnea, etc.
Alcohol Use Disorder
- Last drink about 72 hours ago.
- No evidence of active withdrawal and alcohol use at this time is very intermittent.
- Encourage continued efforts at sobriety. Patient seems motivated.
DVT Prophylaxis: SCDs
Code Status: Full
[2025-05-18] MEDS: NSS 1000 IV ×2 (03:05→09:38)
[2025-05-18 03:16] VITALS: BP 127/72
[2025-05-18 07:00] VITALS: BP 120/75
[2025-05-18 07:12] LABS: Hematocrit 37.5 % (39.0-52.0); Hemoglobin 12.8 g/dL (13.0-18.0); Mean Corp Hgb Conc. 34.1 g/dL (33.0-37.0); Mean Corpuscular Volume 92.4 fL (80.0-94.0); Platelet Count 294 10^3/uL (130-400); Red Cell Dist. Width 13.0 % (11.5-14.5)
--- NOTE | 2025-05-18 07:44 | W.PN.HOSP.TC ---
Today's Communication/Plan
-
Discharge today
Assessment / Plan
Assessment / Plan
Physical Exam
General: Other (49y M in no acute distress.)
HEENT: Moist mucous membranes and PERRLA
Respiratory: Clear; No Wheezes, Rales or Rhonchi
Cardiac: S1/S2 and Regular Rhythm; No Murmur
GI: Soft, Non Tender, Non Distended and Normal Bowel Sounds
Musculoskeletal: No Clubbing, No Cyanosis and No Edema
Neuro: AO x 3
Assessment/Plan
49y M with PMH significant for hypertension and ascending aortic aneurysm who presents to ED complaining of lightheadedness and dizziness. Patient notes that he started to feel very over-heated and exhausted starting yesterday while at work. He
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 He notes that he felt nauseated last PM. He had a few episodes of small volume 'spitting up'. No large amount of emesis. No diarrhea. He drank about 8-10 bottles of
Aquaf[place] throughout the day yesterday.
Today he went to work and began to feel lightheaded and dizzy. He presented to the ED for further evaluation.
Patient had an identical episodes in December of this year.
He denies any supplements or illicit substance use. He states that he takes Advil in the mornings probably 4 days a week for 'aches and pains'.
He is struggling with alcohol use disorder. He has long periods of sobriety with intermittent relapses. He estimates that he has 6-8 drinks in a day during his relapse episodes. His last drink was 72 hours ago.
A/P: Patient is a 49y M with PMH significant for hypertension and ascending aortic aneurysm who presents to ED complaining of lightheadedness and dizziness.
Presentation with lightheadedness and dizziness suspected secondary to heat exposure and volume contraction - RESOLVED
Prerenal LAMIN - IMPROVING
- SCr = 3.7-->2.1 (compared to baseline of 0.7) after intravenous fluids
- Likely multifactorial and related to volume contractions + ARB +/- alcohol use.
- Hold losartan - should follow-up with PCP regarding if and when to resume his Losartan vs. change to beta philly
- Since patient's blood pressures are acceptable, will discharge on low sodium diet and close follow-up with his outpatient physicians
- Patient counseled to avoid NSAIDs in the future and to continue efforts at alcohol abstinence.
- Check CBC, BMP and Magnesium outpatient
- Follow-up outpatient with primary care provider and vice president pharmacy Dr. Jaylin Katz -- he will need another CTA with contrast to check the size of his aneurysm
- Patient stated that he REALLY wants to go home today and he also said he will follow-up closely with his PCP later this week
Benign Hypertension
Hypotension on presentation to the emergency department
Ascending Aortic Aneurysm
- Initial BP in the ED 65/49.
- Holding losartan as noted above.
- IVFs replacement given
- Would consider alternate agent for BP control as noted - amlodipine, nifedipine, etc. as outpatient
- Echo pending
- No chest pain, dyspnea, etc.
Alcohol Use Disorder
- Last drink about 96 hours ago.
- No evidence of active withdrawal and patient's alcohol use at this time is very intermittent.
- Encourage continued efforts at sobriety. Patient seems motivated.
DVT Prophylaxis: SCDs
Code Status: Full Code
More than 30 minutes spent in discharge including
Final examination of the patient
Summarizing hospital stay
Instructions for continuing care to all relevant caregivers
Preparation of discharge records, prescriptions, and referral forms
Total time spent (in minutes): 37
Anticipated Discharge: Today
Subjective/Interval History
-
Date of Service: May 18, 2025
Patient was seen and examined. He stated that his dizziness has resolved, his functioning is back to normal and that he would like to go home today.
Objective Data
-
Labs:
Laboratory Results
05/18/25
06:26
WBC 9.7
Hgb 12.8 L
Hct 37.5 L
Plt Count 294 D
Sodium Pending
Potassium Pending
Chloride Pending
Carbon Dioxide Pending
BUN Pending
Creatinine Pending
Glucose Pending
Calcium Pending
Vital Signs:
Vital Signs
Temp Pulse Resp BP Pulse Ox
98.2 F 71 18 127/72 99
05/18/25 03:16 05/18/25 03:16 05/18/25 03:16 05/18/25 03:16 05/18/25 03:16
I&O
05/17/25 05/18/25 05/19/25
06:59 06:59 06:59
Intake Total 450 / 450 1750 / 1750
Output Total 300 / 300
Balance 150 / 150 1750 / 1750
[2025-05-18 07:59] LABS: Blood Urea Nitrogen 34 mg/dl (9-20); Calcium 8.5 mg/dl (8.4-10.2); Carbon Dioxide 25 mmol/L (22-30); Chloride 111 mmol/L (98-107); Estimated Creatinine Clearance 46 ml/min; Glucose 97 mg/dl (70-99); Potassium 4.2 mmol/L (3.5-5.1); Sodium 141 mmol/L (135-145); eGFR 37.41
--- NOTE | 2025-05-18 10:41 | CM ---
CM following re: discharge planning.
Reviewed pt's chart, met with pt.
Pt is a 49 year old male, admitted with primary dx of LAMIN.
Pt reports he lives with mother 2SH, 2 steps to enter, has no children. Pt described himself as independent in all areas [employer].
Pt admitted to [facility] h/o alcohol abuse. Pt reports he has been suffering with alcohol addiction for years, does not drink too much currently. Pt reports he has been relapsed many time in the past. Pt reports he went to [facility]
last April, has a sponsor.
Pt expressed his desire to meet with [facility] team. A referral to [facility] made, spoke to TONIA Rocha and she will meet with the pt today.
Pt stated he is planning to work with his sponsor seriously regarding staying sober.
PCP: Hector Arvizu
Pharmacy: [facility]
D/C plan: home with resumptions of sponsor support and [facility] to follow.
CM will follow with discharge plan updates as hospitalization progresses
[2025-05-18 11:00] VITALS: BP 130/86
[2025-05-18] MEDS: LR 1000 IV (11:41)
[2025-05-18 15:00] VITALS: BP 119/83; BP 125/94; BP 135/88; PULSE 77; PULSE 81; PULSE 85
--- NOTE | 2025-05-18 16:30 | W.DCSUMMARY ---
Discharge Summary
Discharge Data
Date of Admission: 05/17/25
Date of Discharge: 05/18/25
Total time spent discharging patient (in min): 37
-
Pending Results: No
Hospital Course
49 y/o male with past medical history significant for hypertension and thoracic aortic aneurysm who presented to the [facility] ED complaining of lightheadedness and dizziness. He was found to have significant hypotension in the emergency department
suspected from hypovolemia. Patient was started on intravenous fluids and his acute kidney injury improved. Patient's Losartan was held and his blood pressure was acceptable; it was determined that patient did not need another antihypertensive (e.g.
beta philly) right away or on discharge, and patient said he would follow-up with his PCP later in the same week of hospitalization to re-evaluate restarting Losartan versus starting another antihypertensive. Patient stated he really wanted to be
discharged and he would have repeat labwork done 2 to 3 days with his primary care provider's office. Patient was doing well, his lightheadedness and dizziness resolved, and he was stable for discharge.
Discharge Plan
-
Patient Disposition: Home (Routine Discharge)
Discharge Diagnosis/Procedures: Presentation with lightheadedness and dizziness suspected secondary to heat exposure and volume contraction - RESOLVED
Prerenal Acute Kidney Injury - IMPROVING
Benign Hypertension
Hypotension on presentation to the emergency department
Ascending Aortic Aneurysm
Alcohol Use Disorder - Last drink about 96 hours prior to 05/18/25
- No evidence of active withdrawal and patient's alcohol use at this time is very intermittent.
Condition: Good
Diet: Low Fat, Low Cholesterol, Low Sodium and 2 Gram Sodium
Activity: As tolerated
Blood Work: CBC, CMP, Magnesium, Bilirubin and Creatine Kinase with your primary care provider in 1 to 2 days
Activity Restrictions/Additional Instructions:
You have a thoracic aortic aneurysm but your Losartan has been placed on hold. No new blood pressure medication was started in the hospital as your blood was okay. You need to check your blood pressure at home at least twice per day. You need to see
your primary care provider in 1 to 2 days to see what your blood pressure is, and if you need to be started on a different blood pressure medication. High blood pressure can be dangerous for your aneurysm.
Please take a print-out of your echocardiogram (done in [facility] on 05/18/25) report and send it to your crester for review; discuss the echocardiogram with your crester.
You likely had impaired kidney function from dehydration (and Losartan), it improved with intravenous fluids, but has not come back down to normal yet. You need to recheck labwork above with your primary care provider to make sure your renal
function continues to improve. Stay well hydrated.
Avoid NSAIDs type of medication, discuss this week with your crester and let her know you were hospitalized and that you will soon need another CTA imaging with IV contrast to check the size of your aneurysm.
Instructions: Controlling your blood pressure through lifestyle, High blood pressure emergencies, Aortic Aneurysm (DC), Checking your blood pressure at home, DASH diet
Referrals:
Axel Arvizu MD [Family Provider, Internal Medicine] - in one to two days
Referral Note: Hospital Follow-Up
Prescriptions:
Held
losartan 50 mg tablet
100 mg PO DAILY
Hold Instructions: Resume on 01/02/25.
Discharge Orders:
Discharge Patient (As Directed); Ordered 05/18/25
Ordered By: Jeremiah Sadler
Discharge Date and Time
Discharge Date/Time: 05/18/25 17:18
Print Language: ITALIAN
== END 2025-05-18 17:18 | disposition home or self-care (01) | DRG 684 ==
LOC: 2 NORTH 20:25
PROVIDERS: ADMITTING PHYSICIAN Hospitalist; ATTENDING PHYSICIAN Hospitalist; EMERGENCY PHYSICIAN Emergency Medicine; FAMILY PHYSICIAN Internal Medicine
DX: N17.9 Acute kidney failure, unspecified (principal); K21.9 Gastro-esophageal reflux disease without esophagitis; F17.200 Nicotine dependence, unspecified, uncomplicated; E86.0 Dehydration; I95.9 Hypotension, unspecified; I10 Essential (primary) hypertension; I71.21 Aneurysm of the ascending aorta, without rupture; F10.10 Alcohol abuse, uncomplicated; F32.A Depression, unspecified; Z91.018 Allergy to other foods; Z90.49 Acquired absence of other specified parts of digestive tract
CPT/HCPCS: 80048; 80053; 82550; 84443; 84484; 85025; 85027; 93005; 93306; 96361; 96374; 99285

== ENCOUNTER 2025-05-31 12:02 | Emergency (ER) | payer OTHER, SELFPAY ==
[2025-05-31 12:07] VITALS: BP 155/96
[2025-05-31 12:21] LABS: Hematocrit 42.0 % (39.0-52.0); Hemoglobin 15.0 g/dL (13.0-18.0); Mean Corp Hgb Conc. 35.7 g/dL (33.0-37.0); Mean Corpuscular Volume 88.8 fL (80.0-94.0); Nucleated Red Blood Cells % 0 % (-); Platelet Count 294 10^3/uL (130-400); Red Cell Dist. Width 12.4 % (11.5-14.5)
[2025-05-31 12:36] LABS: ALT (SGPT) 91 U/L (0-50); AST (SGOT) 168 U/L (17-59); Albumin 4.6 g/dl (3.5-5.0); Alkaline Phosphatase 88 U/L (38-126); Blood Urea Nitrogen 15 mg/dl (9-20); Calcium 9.7 mg/dl (8.4-10.2); Carbon Dioxide 29 mmol/L (22-30); Chloride 99 mmol/L (98-107); Glucose 185 mg/dl (70-99); Potassium 2.9 mmol/L (3.5-5.1); Sodium 136 mmol/L (135-145); Total Protein 7.7 g/dl (6.3-8.2); eGFR > 60.00
[2025-05-31 12:47] LABS: Troponin I 0.019 ng/ml
[2025-05-31 13:43] VITALS: BP 137/97
[2025-05-31 13:56] VITALS: BMI 24.1
[2025-05-31 14:00] VITALS: BP 120/94
[2025-05-31] MEDS: NSS 1000 IV (14:00)
[2025-05-31 15:00] VITALS: BP 136/95
[2025-05-31 15:51] LABS: Troponin I 0.017 ng/ml
[2025-05-31 16:02] VITALS: BP 100/88
[2025-05-31] MEDS: KCL ELIXIR 40 MEQ PO (16:36)
--- NOTE | 2025-05-31 16:55 | ED.GENMED ---
History of Present Illness
General
Chief Complaint: Chest Pain
Source: patient
Exam Limitations: none
Time Seen by Provider: 05/31/25 13:22
History of Present Illness
History of Present Illness:
49-year-old male complaining of mostly right-sided chest pain worse with deep breathing. No radiation to the back arms or neck. Symptoms have been continuous. Nonexertional. No nausea or diaphoresis. Admits to alcohol use this week.
Past History
Past History
ED Past Medical History: GERD, HTN and Other (Aneurysm)
ED Past Surgical History: Cholecystectomy and Other (Myringotomy tubes)
Patient has exhibited threatening behavior?: No
PSI?: No
Social History
Tobacco: Smoker
Alcohol: Daily (Beer 2-3)
Personal:
Living: with family
Employment: Employed
Family History
Family History: Adopted
Review of Systems
Review of Systems
All Other Systems: Not applicable
Constitutional: Denies fever or chills
Respiratory: Denies hemoptysis or trouble breathing
Phy Exam
Physical Exam
Physical Exam:
GENERAL: Alert and oriented in no apparent distress
EYE: Orbits normal.
NECK: Supple, no thyroid palpable
ENT: Pharynx without erythema
CARDIAC: Regular rate and rhythm without any obvious murmurs.
LUNGS: Clear breath sounds,normal
ABDOMEN: Soft, without focal tenderness or distention
NEUROLOGICAL: Alert and oriented , grossly non-focal
SKIN: Warm and dry, no rash or lesion, no discoloration, skin intact.
MUSCULOSKELETAL: No edema,no deformity.Good color
PSYCH: Normal and appropriate interaction.
Scores
Heart Score for Chest Pain Patients
STEMI patient?: No
History: Slightly or Non-Suspicious
ECG: Nonspecific Repolarization
Age: >45 - <65 years
Risk Factors: 1 or 2 Risk Factors
Troponin: </= Normal Limit
Heart Score for Chest Pain Patients: 3
Heart Score Risk: 2.5% MACE over next 6 weeks
Course
Orders/Labs/Results
Orders:
Orders
05/31/25 12:04
Electrocardiogram (*1) Urgent
Reason for Study: Chest Pain
EKG- Treatment ONCE
05/31/25 12:15
Complete Blood Count/With Diff Urgent
Comprehensive Metabolic Panel Urgent
Troponin I Urgent
05/31/25 13:33
IV Insert/Care/Rem.- Treatment PRN
0.9% Sodium Chloride 1000 ml [Nss] 1,000 ml IV BOLUS
05/31/25 13:34
CT Chest PE Study Urgent
Comment:
Reason For Exam: Right-sided pleuritic chest pain/aneurysm history
EKG- Treatment ONCE
05/31/25 15:00
Electrocardiogram (*1) Stat
Reason for Study: Other
Other Reason for Exam: chest pain
05/31/25 15:09
Troponin I Urgent
05/31/25 16:14
Potassium Chloride 10% Elixir [KCl Elixir] 40 meq PO NOW STA
Abnormal Lab Results
05/31/25
12:15
WBC 11.7 H 10^3/uL
(4.8-10.8)
MCH 31.7 H pg
(27.0-31.0)
Absolute Neuts (auto) 9.6 H 10^3/uL
(1.4-6.5)
Neutrophils % 82.6 H %
(42.2-75.2)
Lymphocytes % 10.9 L %
(20.5-51.1)
Potassium 2.9 L mmol/L
(3.5-5.1)
Glucose 185 H mg/dl
(70-99)
Total Bilirubin 1.6 H mg/dl
(0.2-1.3)
AST 168 H U/L
(17-59)
ALT 91 H U/L
(0-50)
05/31/25 12:15
05/31/25 12:15
Vital Signs
Initial and Last Documented VS:
Initial Vital Signs
Temp Pulse Resp BP Pulse Ox
98.3 F 112 16 155/96 97
05/31/25 12:07 05/31/25 12:07 05/31/25 12:07 05/31/25 12:07 05/31/25 12:07
Last Documented Vital Signs
Temp Pulse Resp BP Pulse Ox
98.3 F 98 25 100/88 97
05/31/25 12:07 05/31/25 16:30 05/31/25 16:30 05/31/25 16:02 05/31/25 16:59
MDM/Problems Addressed
Differential Diagnosis Includes:
Atypical cardiac chest pain. Pleuritic. Continuous for days. EKG is nonspecific changes but this may be potassium related. Very low suspicion for primary cardiac issue. Repeat troponin stable. Repeat EKG stable. Repeat EKG normal sinus rhythm
at 96 with nonspecific changes. No change in aneurysm no PE. Mild hypokalemia. LFTs elevated likely secondary to alcohol use.
*Radiology
Radiology exam reviewed: radiology read reviewed (Stable ascending aortic aneurysm. Otherwise negative)
*Pulse Oximetry
SaO2: 97
Oxygen Mode of Delivery: Room air
Patient hypoxic: no
*EKG
Interpreted by ED Provider?: Yes
Interpretation: abnormal
Comparison EKG: changes noted
Heart Rate: 87
Rate: normal
Rhythm: sinus
[place]: normal axis
Interval: normal interval
QRS Pattern: normal QRS
Ischemia: non-specific ST changes
*[employer] Interpretation
Rate: normal
Interpretation: normal
Heart Rate: 99
Rhythm: sinus
*Critical Care Note
Total Time (30-74mins, 75-104mins- exclusive of procedures): Not Applicable
Data Reviewed
Review of Other/Old Records Reveals: Labs, Records and Testing
Update Note
Update Note:
Patient remained medically and stable and nontoxic. Again ongoing continuous atypical chest pain right-sided pleuritic in nature for 1+ day. LFTs elevated from binge drinking. May also be contributing to his hypokalemia. He has repeat labs
scheduled this week
ED Attending Note
-
Portions of this chart may have been created with voice recognition software.� Occasional wrong word or��sound alike� substitutions may have occurred due to the inherent limitations of voice recognition software.
Discharge Plan
Departure
Patient Disposition: Home (Routine Discharge)
Date of Disposition: 05/31/25
Time of Disposition: 17:14
Patient with high blood pressure during this ER visit?: No
Discharge Problem:
Right-sided chest pain, Hypokalemia, Hyperglycemia, Transaminitis
Instructions: Hypokalemia, Chest pain - Discharge instructions, High blood sugar in adults - ED discharge instructions
Prescriptions:
No Action
losartan 50 mg tablet
100 mg PO DAILY
Referrals:
Axel Arvizu MD [Family Provider, Internal Medicine] - Follow up in 2-3 days
Activity Restrictions/Additional Instructions:
Get your labs repeated, specifically your sodium and blood sugar this week
Interventions
Interventions:
*Risk Screen - Suicide Last Done: 05/31/25 12:09
*General Assessment Last Done: 05/31/25 13:56
*Neglect/Abuse Screening Last Done: 05/31/25 12:09
*ED- Fall Risk Assessment Last Done: 05/31/25 13:56
*ED COVID-19 Vaccine History Last Done: 05/31/25 13:56
ED- Cardiac Assessment Last Done: 05/31/25 13:56
Discharge Date and Time
Print Language: SOU[place]ORE[place]
[2025-05-31 17:00] VITALS: BP 147/93
== END 2025-05-31 17:40 | disposition home or self-care (01) ==
LOC: EMR 12:02
PROVIDERS: Emergency Medicine; EMERGENCY PHYSICIAN Emergency Medicine; FAMILY PHYSICIAN Internal Medicine
DX: R07.89 Other chest pain (principal); E87.6 Hypokalemia; R73.9 Hyperglycemia, unspecified; R74.01 Elevation of levels of liver transaminase levels; K21.9 Gastro-esophageal reflux disease without esophagitis; I10 Essential (primary) hypertension; F17.200 Nicotine dependence, unspecified, uncomplicated; I72.9 Aneurysm of unspecified site; Z90.49 Acquired absence of other specified parts of digestive tract
CPT/HCPCS: 99284; 96360; 71275; 80053; 84484; 85025; 93005; Q9967

== ENCOUNTER 2025-08-19 13:05 | Emergency (ER) | payer OTHER, SELFPAY ==
[2025-08-19 13:09] VITALS: BP 151/104
[2025-08-19 13:38] LABS: Hematocrit 47.6 % (39.0-52.0); Hemoglobin 16.4 g/dL (13.0-18.0); Mean Corp Hgb Conc. 34.5 g/dL (33.0-37.0); Mean Corpuscular Volume 88.5 fL (80.0-94.0); Nucleated Red Blood Cells % 0 % (-); Platelet Count 346 10^3/uL (130-400); Red Cell Dist. Width 14.5 % (11.5-14.5)
[2025-08-19 13:47] LABS: ALT (SGPT) 35 U/L (0-50); AST (SGOT) 51 U/L (17-59); Albumin 5.6 g/dl (3.5-5.0); Alkaline Phosphatase 111 U/L (38-126); Blood Urea Nitrogen 20 mg/dl (9-20); Calcium 10.1 mg/dl (8.4-10.2); Carbon Dioxide 23 mmol/L (22-30); Chloride 96 mmol/L (98-107); Glucose 134 mg/dl (70-99); Potassium 3.8 mmol/L (3.5-5.1); Sodium 139 mmol/L (135-145); Total Protein 9.3 g/dl (6.3-8.2); eGFR > 60.00
[2025-08-19 13:56] LABS: Troponin I 0.019 ng/ml
--- NOTE | 2025-08-19 15:01 | ED.GENMED ---
History of Present Illness
General
Chief Complaint: Numbness
Source: patient
Exam Limitations: none
Time Seen by Provider: 08/19/25 15:01
Nursing documentation reviewed up to this point in time: agreed with
History of Present Illness
History of Present Illness:
49-year-old male with history of HTN, GERD, alcohol abuse, anxiety, cholecystectomy presents stating 'I must of vomited 60 times since sometime in the middle of the night last night.' His last emesis was 20 minutes ago. What he did not say in
triage was that he went on a drinking binge last night drinking at least 2 pints of vodka. He admits to being alcoholic and he did call his sponsor. He states remorse and embarrassment for being here now. He denies feeling as if he is going
through withdrawal as he has been there before and adamantly denies this. He feels that he could just be hydrated and get something for nausea that he would feel better.
He states the numbness he felt on the left side of his body was during frequent episodes of vomiting. He has had right sided neck pain for several weeks now and most likely aggravated it during the vomiting. The numbness has completely subsided.
He has a mild ache in the right side of his neck at this time
Past History
Past History
ED Past Medical History: GERD, HTN and Other (Aneurysm)
ED Past Surgical History: Cholecystectomy and Other (Myringotomy tubes)
Patient has exhibited threatening behavior?: No
PSI?: No
Social History
Tobacco: Smoker
Alcohol: Daily (Beer 2-3)
Personal:
Living: with family
Employment: Employed
Family History
Family History: Adopted
Review of Systems
Review of Systems
Allergies reviewed?: Yes
All Other Systems: ROS reviewed and negative except as documented in HPI and ROS
Phy Exam
Physical Exam
Physical Exam:
GENERAL: No acute distress. A&Ox3.
CONSTITUTIONAL: Afebrile.
EYES: clear, conjunctivae normal
ENMT: dry mucus membranes, Pharynx nl. TMs normal, no cervical lymphadenopathy
RESPIRATORY: Regular respirations, nonlabored, lungs clear.
CARDIOVASCULAR: Regular rate and rhythm, no murmurs, no rubs.
GI: Soft, nontender, normal BS
MUSCULOSKELETAL: Moves with ease. Well perfused. Mild tenderness to palpation of right side neck soft tissue, full ROM of neck.
SKIN: Warm, dry, pink
PSYCH: Normal mood and affect. Well kept, interactive and appropriate
NEUROLOGIC: Awake, alert and oriented. No focal neurological deficits
Scores
Withdrawal Assessment of Alcohol
Withdrawal Assessment Completed?: Yes
Nausea and Vomiting: Constant nausea, frequent dry heaves and vomiting
Tactile Disturbances: None
Tremor: No tremor
Auditory Disturbances: Not present
Paroxysmal Sweats: No sweat visible
Visual Disturbances: Not present
Anxiety: Mild anxiety
Headache, Fullness in Head: Not present
Agitation: Normal activity
Orientation and clouding of sensorium: Oriented and can do serial additions
Total CIWA Score: 8
Alcohol Withdrawal Medication Recommendation: Equal to MSAS Score 5-7. Lorazepam 1mg IV or PO NOW & re-assess q2hrs
Course
Orders/Labs/Results
Orders:
Orders
08/19/25 13:13
EKG [Electrocardiogram (*1)] Urgent
Reason for Study: Palpitations
08/19/25 13:14
EKG- Treatment ONCE
08/19/25 13:17
Complete Blood Count/With Diff Urgent
Comprehensive Metabolic Panel Urgent
Troponin I Urgent
08/19/25 15:16
0.9% Sodium Chloride 1000 ml [Nss] 1,000 ml IV BOLUS
Ondansetron Injectable [Zofran] 4 mg IV NOW STA
Abnormal Lab Results
08/19/25
13:17
WBC 15.9 H 10^3/uL
(4.8-10.8)
Abs Immat Gran (auto) 0.1 H 10^3/uL
(0-0.05)
Absolute Neuts (auto) 13.6 H 10^3/uL
(1.4-6.5)
Absolute Lymphs (auto) 0.8 L 10^3/uL
(1.2-3.4)
Absolute Monos (auto) 1.4 H 10^3/uL
(0.1-0.6)
Neutrophils % 85.7 H %
(42.2-75.2)
Lymphocytes % 5.0 L %
(20.5-51.1)
Chloride 96 L mmol/L
(98-107)
Glucose 134 H mg/dl
(70-99)
Total Bilirubin 2.8 H mg/dl
(0.2-1.3)
Total Protein 9.3 H g/dl
(6.3-8.2)
Albumin 5.6 H g/dl
(3.5-5.0)
08/19/25 13:17
08/19/25 13:17
Vital Signs
Initial and Last Documented VS:
Initial Vital Signs
Temp Pulse Resp BP Pulse Ox
98.5 F 98 18 151/104 99
08/19/25 13:09 08/19/25 13:09 08/19/25 13:09 08/19/25 13:09 08/19/25 13:09
Last Documented Vital Signs
Temp Pulse Resp BP Pulse Ox
98.5 F 114 14 141/94 96
08/19/25 13:09 08/19/25 18:15 08/19/25 18:15 08/19/25 18:00 08/19/25 16:15
MDM/Problems Addressed
Differential Diagnosis Includes:
Dehydration, alcohol withdrawal, gastroenteritis
MDM/Problems Addressed:
49-year-old male with history of HTN, GERD, alcohol abuse, anxiety, cholecystectomy presents stating 'I must of vomited 60 times since sometime in the middle of the night last night.' His last emesis was 20 minutes ago. What he did not say in
triage was that he went on a drinking binge last night drinking at least 2 pints of vodka. He admits to being alcoholic and he did call his sponsor. He states remorse and embarrassment for being here now. He denies feeling as if he is going
through withdrawal as he has been there before and adamantly denies this. He feels that he could just be hydrated and get something for nausea that he would feel better.
EKG NSR HR 89
3:05 p.m.
He states the numbness he felt on the left side of his body was during frequent episodes of vomiting. He has had right sided neck pain for several weeks now and most likely aggravated it during the vomiting. The numbness has completely subsided
and was related to the significant repeated vomiting possibly hyperventilating. He has a mild ache in the right side of his neck at this time
Tachycardic on bedside monitor HR 120s, nauseous, had to run to [facility] to vomit.
CBC: WBC 15.9 reactive from vomiting,
CMP abnormalities consistent with dehydration.
Troponin WNL
MSAS score 8. Patient declines and offered Ativan. He does not feel like he is going through withdrawal. He agrees with IV fluids and antiemetic.
4:20 PM: No further vomiting, patient eating a meal, is calm and pleasant
5:30 p.m.
Tolerated whole meal, HR remains 120, sinus on monitor. He is watching TV and texting on his phone. As we are interacting his heart rate goes up to 130 as he is describing the fact that he is embarrassed to be here and rapid heart rate may be
partially contributed to his emotional state.
He denies any feeling of shakiness, withdrawal symptoms, states he feels much better. States he is lacking sleep, didn't sleep at all last night, this most likely is contributing to his tachycardia. His EKG on arrival had HR 89.
He feels well and wants to go home.
He has contacted his sponsor and will return to his AA meetings
*Pulse Oximetry
SaO2: 99
Oxygen Mode of Delivery: Room air
Patient hypoxic: no
*EKG
EKG Intrepretation Date: 08/19/25
Interpretation: normal
Heart Rate: 89
Rate: normal
Rhythm: sinus
[place]: normal axis
Interval: normal interval
QRS Pattern: normal QRS
Ischemia: no ischemia
*Critical Care Note
Total Time (30-74mins, 75-104mins- exclusive of procedures): Not Applicable
ED Attending Note
-
Portions of this chart may have been created with voice recognition software.� Occasional wrong word or��sound alike� substitutions may have occurred due to the inherent limitations of voice recognition software.
Discharge Plan
Departure
Patient Disposition: Home (Routine Discharge)
Date of Disposition: 08/19/25
Time of Disposition: 17:45
Patient with high blood pressure during this ER visit?: No
Condition: Good
Discharge Problem:
Nausea & vomiting
Instructions: Alcohol use disorder (DC), Acute Nausea and Vomiting
Prescriptions:
New
ondansetron 4 mg tablet,disintegrating
4 mg PO Q8H PRN (Reason: nausea and vomiting) 5 Days Qty: 14 0RF
No Action
losartan 50 mg tablet
100 mg PO DAILY
Referrals:
David Arvizu MD [Family Provider, Internal Medicine] - As needed
Activity Restrictions/Additional Instructions:
As we discussed, I sent a prescription to your pharmacy for Zofran to take as needed for nausea and vomiting.
Be sure to get in touch with your sponsor and go to meetings on a regular basis.
Interventions
Interventions:
*Risk Screen - Suicide Last Done: 08/19/25 13:09
*General Assessment Last Done: 08/19/25 13:09
*Neglect/Abuse Screening Last Done: 08/19/25 13:09
*ED- Fall Risk Assessment Last Done: 08/19/25 13:09
*ED COVID-19 Vaccine History Last Done: 08/19/25 13:09
*ED Influenza Vaccine History Last Done: 08/19/25 13:09
*Nursing Disposition Last Done: 08/19/25 18:23
ED- Neurological Assessment Last Done: 08/19/25 15:53
Discharge Date and Time
Discharge Date/Time: 08/19/25 18:25
Print Language: [place]
[2025-08-19] MEDS: NSS 1000 IV (15:50)
[2025-08-19] MEDS: ZOFRAN 4 MG IV (15:50)
[2025-08-19 15:52] VITALS: BP 152/102
[2025-08-19 15:54] VITALS: BP 142/104
[2025-08-19 15:55] VITALS: BMI 25.8
[2025-08-19 16:00] VITALS: BP 152/106
[2025-08-19 17:00] VITALS: BP 150/97
[2025-08-19 18:00] VITALS: BP 141/94
== END 2025-08-19 18:25 | disposition home or self-care (01) ==
LOC: EMR 13:05
PROVIDERS: EMERGENCY PHYSICIAN Student in an Organized Health Care Education/Training Program; FAMILY PHYSICIAN Student in an Organized Health Care Education/Training Program
DX: R11.2 Nausea with vomiting, unspecified (principal); I10 Essential (primary) hypertension; F17.200 Nicotine dependence, unspecified, uncomplicated; Z90.49 Acquired absence of other specified parts of digestive tract
CPT/HCPCS: 99284; 96374; 96361; 80053; 84484; 85025; 93005